=== PATIENT | female | born 1995 | race Caucasian/White ===

== ENCOUNTER 2023-06-27 09:17 | Inpatient (IN) | payer OTHER, SELFPAY ==
[2023-06-27] VITALS (112 sets, daily range): BP systolic 75–126; BP diastolic 35–96; PULSE 78–125; RESP 14–38; TEMP 35.7–37.8; O2SAT 90–100; BMI 19.5
--- NOTE | 2023-06-27 09:25 | ECG_ITS ---
[facility] Test Date: 2023-06-27 Pat Name: ONESIMO JORDAN Department: Room: [facility] Gender: Female Junior Graphic Designer: : 1995 Requested By: JASVIR PAPPAS Order Number: [id number] Reading MD: DORINA PALENCIA Measurements Intervals [place] Rate: 123 P: 88 TN: 108 QRS: 64 QRSD: 88 T: -35 QT: 348 QTc: 421 Interpretive Statements 1120 Sinus tachycardia 2210 Short TN interval Nonspecific ST/T wave changes 9150 abnormal ECG No previous ECG available for comparison Electronically Signed On 06-28-2023 7:01:59 EDT by DORINA PALENCIA
[2023-06-27 10:06] LABS: Allen Test POSITIVE (POSITIVE); Oxygen Saturation ABG 97.2 %
[2023-06-27 10:07] LABS: O2 Mode ROOM AIR; Puncture Site LR
[2023-06-27 10:09] LABS: ABG PCO2 <15.4 mmHg (35.0-45.0); pH ABG <6.818 (7.350-7.450)
[2023-06-27] MEDS: 0.9 % SODIUM CHLORIDE 1,000 ML 999 ML IV (10:15)
[2023-06-27 10:22] LABS: PCO2 VBG 19.8 mmHg (40.0-52.0); pH VBG <6.818 (7.330-7.430)
--- NOTE | 2023-06-27 10:27 | PC.NURSE ---
one on one care provided throughout time patient arrives in the er pt unresponsive upon arrival pt was dropped off by significant other and he states she has ho dka pt unresponsive brought to rm 5 iv access unable to obtain and I/o initiated flushed well then when blood specimen obtained i/o would not flush after that ultrasound iv initiated per MALDONADO wu foleyinserted ua sent to lab pt with rapid respirations ekg completed lab obtained pt responds at times with flushing of IV to I/O region no swelling noted to i/o sites pt withmultiple areas of bruised vein areas to neck femoral area and foot area dr vital with staff and patient orders received
[2023-06-27 10:36] LABS: Basophils Absolute Auto 0.2 10^3/uL (0.0-0.1); Basophils Percent Auto 0.8 % (0.2-2.0); Eosinophils Absolute Auto 0.1 10^3/uL (0.0-0.7); Eosinophils Percent Auto 0.4 % (0.9-7.0); Hematocrit 36.8 % (36.0-48.0); Hemoglobin 10.2 g/dL (12.0-16.0); Immature Granulocytes Abs Auto 1.43 10^3/uL (0.00-0.03); Immature Granulocytes Pct Auto 5.8 % (0.0-0.5); Lymphocytes Absolute Auto 4.7 10^3/uL (1.2-3.8); Lymphocytes Percent Auto 18.8 % (20.5-60.0); Mean Corpuscular HGB Conc 27.7 g/dL (29.9-35.2); Mean Corpuscular Hemoglobin 29.9 pg (26.7-34.0); Mean Corpuscular Volume 107.9 fL (81.0-99.0); Mean Platelet Volume 10.8 fL (9.5-13.5); Monocytes Absolute Auto 2.4 10^3/uL (0.3-0.8); Monocytes Percent Auto 9.7 % (1.7-12.0); Neutrophils Percent Auto 64.5 % (43.0-75.0); Platelet Count 419 10^3/uL (150-450); Red Blood Count 3.41 10^6/uL (4.20-5.40); Red Cell Distribution Width 16.9 % (11.0-15.0); White Blood Count 24.8 10^3/uL (4.0-11.0)
[2023-06-27 10:38] LABS: Bilirubin Urine NEGATIVE (NEGATIVE); Blood Urine TRACE-I (NEGATIVE); Clarity Urine CLEAR (CLEAR); Color Urine LT. YELLOW (YELLOW); Glucose Urine UA >=1000 mg/dL (NEGATIVE); Ketones Urine >=80 mg/dL (NEGATIVE); Leukocyte Esterase Urine NEGATIVE (NEGATIVE); Nitrite Urine NEGATIVE (NEGATIVE); Protein Urine TRACE mg/dL (NEG/TRACE); Urobilinogen Urine 0.2 EU/dL (0.2-1.0); pH Urine 5.5 (5.0-9.0)
[2023-06-27 10:45] LABS: Urine Microscopic Indicated YES
[2023-06-27 10:45] LABS: Alanine Aminotransferase 51 U/L (14-59); Albumin Level 3.5 g/dL (3.4-5.0); Alkaline Phosphatase 141 U/L (46-116); Aspartate Amino Transferase 54 U/L (15-37); BUN Creatinine Ratio 12.6; Bilirubin Total 0.7 mg/dL (0.2-1.0); Calcium 8.5 mg/dL (8.5-10.1); Carbon Dioxide <5.0 mmol/L (21.0-32.0); Chloride 99 mmol/L (98-107); Estimated GFR (African America 49 (>=60); Estimated GFR (Non-African Ame 41 (>=60); Globulin 3.5 g/dL; Magnesium 2.5 mg/dL (1.8-2.4); Potassium 5.1 mmol/L (3.5-5.1); Sodium 136 mmol/L (136-145)
[2023-06-27 10:49] LABS: Glucose 922 mg/dL (74-106)
[2023-06-27 10:50] LABS: Bacteria Urine NONE SEEN #/HPF (NONE SEEN); Crystals Seen? Seen #/HPF (None Seen); Mucus Urine NONE SEEN (NONE SEEN); RBC Urine 0-2 #/HPF (0-2); Squamous Epithelial Cell Urine RARE #/LPF (NONE/RARE); WBC Urine NONE SEEN #/HPF (NONE SEEN)
--- NOTE | 2023-06-27 10:50 | PC.NURSE ---
attempts being made to gain 2nd iv access
[2023-06-27 10:51] LABS: Amorphous Sediment Urine FEW
[2023-06-27 10:54] LABS: Amphetamine Screen Urine NEGATIVE (NEGATIVE); Barbiturates Screen Urine NEGATIVE (NEGATIVE); Benzodiazepines Screen Urine NEGATIVE (NEGATIVE); Buprenorphine Screen Urine NEGATIVE (NEGATIVE); Cannabinoid Screen Urine NEGATIVE (NEGATIVE); Cocaine Screen Urine POSITIVE (NEGATIVE); Methadone Screen Urine NEGATIVE (NEGATIVE); Methamphetamines Screen Urine NEGATIVE (NEGATIVE); Opiate Screen Urine NEGATIVE (NEGATIVE); Oxycodone Screen Urine NEGATIVE (NEGATIVE); Phencyclidine Screen Urine NEGATIVE (NEGATIVE); Tricyclic Antidepressant Urine NEGATIVE (NEGATIVE)
--- NOTE | 2023-06-27 11:11 | ED_ITS ---
HPI - Altered Mental Status General Chief Complaint: Altered Mental Status Stated Complaint: ALTERED MENTAL STATUS Time Seen by Provider: 06/27/23 09:46 History of Present Illness HPI narrative: patient was brought to the hospital by male bystander who immediately left the campus and was not able to provide any information. We were able to get records from her from 07/22/2021 when she was transferred to this hospital from a different facility for DKA. Otherwise we have no history as she is not able to provide mental any information for us. He was seen immediately on arrival here and supportive care and therapeutic resuscitation initiated by myself and the nursing staff. Related Data Allergies Allergy/AdvReac Type Severity Reaction Status Date / Time No Known Drug Allergies Allergy Verified 06/27/23 09:29 Exam Narrative Exam Narrative: patient is restless and moving about all the extremities but will not answer qu estions or follow specific commands. She is to Make an tachycardic. Symptoms would suggest DKA since her blood sugar is markedly elevated on the bedside glucose. In lieu of that IVs were initiated. She was extremely difficult stick with multiple areas of apparent injection of narcotics in the past all of her limbs her feet her groin area included. We were finally able to obtain a left upper extremity IV. We also were were able to pass an intraosseous on her right leg initially that would not flush but then we're able to secure an intraosseous IV access on her left lower extremity. HEENT shows no evidence of trauma or injury. She her airways patent she's not vomiting. She won't answer any questions for us but seems to be hearing us. Chest shows lungs to be clear with no wheezes rales or rhonchi. We cannot get a chest x-ray as there is no portable imaging equipment and I felt she should not go to the department. I hear and see no evidence of respiratory distress or airway problems. Abdomen very thin no guarding rebound rigidity or tenderness to palpation. Extremities other in the numerous needle puncture molina and do not see any evidence of acute trauma or injury. She is moving all the extremities. Constitutional Vital Signs, click to edit/add: Last Vital Signs Temp 97.8 F 06/27/23 09:26 Pulse 100 H 06/27/23 10:50 Resp 32 H 06/27/23 10:50 BP 94/58 06/27/23 10:15 Pulse Ox 99 06/27/23 10:20 O2 Del Method Room Air 06/27/23 09:26 Course Vital Signs Vital signs: Vital Signs Pulse Rate 123 H 06/27/23 09:25 Respiratory Rate 32 H 06/27/23 09:25 Pulse Oximetry 99 06/27/23 09:25 Temperature 97.8 F 06/27/23 09:26 Pulse Rate 100 H 06/27/23 10:50 Respiratory Rate 32 H 06/27/23 10:50 Blood Pressure 94/58 06/27/23 10:15 Pulse Oximetry 99 06/27/23 10:20 Oxygen Delivery Method Room Air 06/27/23 09:26 MDM - Altered Mental Status MDM Narrative Medical decision making narrative: initial laboratory studies confirm our suspicion for DKA with her lactic acid 4.0 bicarbonate less than five glucose ninety twenty-two pH 6.818 with a decreased PCO2 of 15.4. Resuscitation included 2 L of normal saline wide open with a pressure bag. After the 2nd liter was infused I want start her on 0.1 units of insulin per kilogram per hour drip. A Pagan catheter was placed. A call was placed to our hospitalist Dr. Celestin with the labs or tests and clinical condition shared with him. We will get her a bed in ICU as quickly as possible. Lab Data Labs: Lab Results 06/27/23 06/27/23 06/27/23 Range/Units 09:54 10:02 10:25 Puncture Site Lr ABG pH <6.818 L* (7.350-7.450) ABG pCO2 <15.4 L* (35.0-45.0) mmHg ABG pO2 151.0 H (80.0-100.0) mmHg ABG O2 Saturation 97.2 % Julito Test Positive (POSITIVE) VBG pH <6.818 L (7.330-7.430) VBG pCO2 19.8 L (40.0-52.0) mmHg Sodium 136 (136-145) mmol/L Potassium 5.1 (3.5-5.1) mmol/L Chloride 99 (98-107) mmol/L Carbon Dioxide <5.0 L (21.0-32.0) mmol/L Anion Gap 37.80406 BUN 19.0 H (7.0-18.0) mg/dL Creatinine 1.51 H (0.55-1.02) mg/dL Est GFR ( Amer) 49 L (>=60) Est GFR (Non-Af Amer) 41 L (>=60) BUN/Creatinine Ratio 12.6 Glucose 922 H* (74-106) mg/dL Lactate 4.0 H* (0.4-2.0) mmol/L Calcium 8.5 (8.5-10.1) mg/dL Magnesium 2.5 H (1.8-2.4) mg/dL Total Bilirubin 0.7 (0.2-1.0) mg/dL AST 54 H (15-37) U/L ALT 51 (14-59) U/L Alkaline Phosphatase 141 H (46-116) U/L Total Protein 7.0 (6.4-8.2) g/dL Albumin 3.5 (3.4-5.0) g/dL Globulin 3.5 g/dL Albumin/Globulin Ratio 1.0 Urine Color Lt. yellow (YELLOW) Urine Clarity Clear (CLEAR) Urine pH 5.5 (5.0-9.0) Ur Specific [place] 1.020 (1.005-1.025) Urine Protein Trace (NEG/TRACE) mg/dL Urine Glucose (UA) >=1000 A (NEGATIVE) mg/dL Urine Ketones >=80 A (NEGATIVE) mg/dL Urine Occult Blood Trace-i (NEGATIVE) Urine Nitrite Negative (NEGATIVE) Urine Bilirubin Negative (NEGATIVE) Urine Urobilinogen 0.2 (0.2-1.0) EU/dL Ur Leukocyte Esterase Negative (NEGATIVE) Urine RBC 0-2 (0-2) #/HPF Urine WBC None seen (NONE SEEN) #/HPF Ur Squamous Epith Cells Rare (NONE/RARE) #/LPF Urine Crystals Seen A (None Seen) #/HPF Amorphous Sediment Few Urine Bacteria None seen (NONE SEEN) #/HPF Urine Mucus None seen (NONE SEEN) Urine Opiates Screen Negative (NEGATIVE) Ur Buprenorphine Scrn Negative (NEGATIVE) Ur Oxycodone Screen Negative (NEGATIVE) Urine Methadone Screen Negative (NEGATIVE) Ur Propoxyphene Screen Negative (NEGATIVE) Ur Barbiturates Screen Negative (NEGATIVE) U Tricyclic Antidepress Negative (NEGATIVE) Ur Phencyclidine Scrn Negative (NEGATIVE) Ur Amphetamines Screen Negative (NEGATIVE) U Methamphetamines Scrn Negative (NEGATIVE) U Benzodiazepines Scrn Negative (NEGATIVE) Urine Cocaine Screen Positive A (NEGATIVE) U Cannabinoids Screen Negative (NEGATIVE) Discharge Plan Discharge Chief Complaint: Altered Mental Status Clinical Impression: Diabetic keto-acidosis Time of Disposition Decision: 11:16
[2023-06-27] MEDS: 0.9 % SODIUM CHLORIDE 10 ML SYRINGE - SALINE FLUSH 1000 ML IV (11:16)
--- NOTE | 2023-06-27 11:51 | PM.HP ---
H&P: HPI History of Present Illness Chief complaint: Altered mental status Narrative: 28 y/o female to ER with altered mental status. Patient not able to provide history of answer questions and history obtained from chart. Patient was dropped off at ER with altered mental status. Not alert or awake. Not able to answer questions. Review of chart shows history of DM1 and prior episodes of DKA. ABG shwoed pH 6.8 and pCO2 <15. Labs with glucose 922 and anion gap 32. Urine positive for cocaine. Given 2 L normal saline and admitted to ICU for treatment. Review of Systems ROS Status of ROS unobtainable due to mental status [facility] Medical History (Updated 06/27/23 @ 11:55 by Geo Cuevas MD) Meds Home Medications and Allergies Allergies Allergy/AdvReac Type Severity Reaction Status Date / Time No Known Drug Allergies Allergy Verified 06/27/23 09:29 Exam Constitutional Vital Signs, click to edit/add: Last Vital Signs Temp 97.8 F 06/27/23 09:26 Pulse 100 H 06/27/23 10:50 Resp 32 H 06/27/23 10:50 BP 94/58 06/27/23 10:15 Pulse Ox 99 06/27/23 10:20 O2 Del Method Room Air 06/27/23 09:26 Common normals: healthy appearing Exam limitations: altered mental status General appearance: lethargic HENAK Common normals: normocephalic Respiratory Common normals: clear to auscultation bilaterally Effort & inspection: tachypneic Auscultation: no rales, no rhonchi and no wheezes Cardio Common normals: regular rate, regular rhythm, no gallops, no murmurs and no rub GI Common normals: Normal to inspection, nondistended, normoactive bowel sounds present and non-tender Extremity Common normals: no pedal edema Results Labs Labs: BMP 06/27/23 10:02 Sodium 136 Potassium 5.1 Chloride 99 Carbon Dioxide <5.0 L BUN 19.0 H Creatinine 1.51 H Glucose 922 H* Calcium 8.5 Liver Function 06/27/23 Range/Units 10:02 Total Bilirubin 0.7 (0.2-1.0) mg/dL AST 54 H (15-37) U/L ALT 51 (14-59) U/L Alkaline Phosphatase 141 H (46-116) U/L Albumin 3.5 (3.4-5.0) g/dL Urine 06/27/23 Range/Units 10:25 Urine Color Lt. yellow (YELLOW) Urine Clarity Clear (CLEAR) Urine pH 5.5 (5.0-9.0) Ur Specific [place] 1.020 (1.005-1.025) Urine Protein Trace (NEG/TRACE) mg/dL Urine Glucose (UA) >=1000 A (NEGATIVE) mg/dL ABG ABG results: 06/27/23 06/27/23 09:54 10:02 ABG pH <6.818 L* ABG pCO2 <15.4 L* ABG pO2 151.0 H ABG O2 Saturation 97.2 VBG pH <6.818 L VBG pCO2 19.8 L Attestation: I have reviewed the pertinent ABG results. Assessment and Plan Assessment and Plan (1) Acute kidney injury: (2) DKA, type 1: (3) Altered mental status: (4) Cocaine abuse: Plan Presented with DKA and altered mental status. Urine positive for cocaine and patient has track molina on bilateral arms. Continue IV fluids. Give IV insulin 5 units x one then start drip at 5 units per hour. Monitor venous pH and BMP. Monitor electrolytes. Will continue insulin drip until anion gap normalized. Monitor glucose every hour. Will need to verify home medications.
[2023-06-27] MEDS: INSULIN REGULAR IN 0.9 % NACL 100 UNIT/100 ML BAG IV ×4 (12:38→23:05)
[2023-06-27] MEDS: POTASSIUM CHLORIDE IN 0.9%NACL 1,000 ML 100 MEQ IV (12:39)
[2023-06-27 14:45] LABS: PCO2 VBG <15.4 mmHg (40.0-52.0)
[2023-06-27 15:06] LABS: BUN Creatinine Ratio 13.8; Calcium 6.9 mg/dL (8.5-10.1); Carbon Dioxide <5.0 mmol/L (21.0-32.0); Chloride 109 mmol/L (98-107); Estimated GFR (African America 52 (>=60); Estimated GFR (Non-African Ame 43 (>=60); Magnesium 2.2 mg/dL (1.8-2.4); Potassium 4.6 mmol/L (3.5-5.1); Sodium 140 mmol/L (136-145)
[2023-06-27 15:10] LABS: Glucose 688 mg/dL (74-106)
[2023-06-27 15:48] LABS: Glucometer 517 mg/dL (74-106)
[2023-06-27] MEDS: ACETAMINOPHEN 500 MG TABLET 1000 MG PO (15:49)
[2023-06-27 16:55] LABS: Glucometer 401 mg/dL (74-106)
--- NOTE | 2023-06-27 16:56 | PC.NURSE ---
Patient IVFs were paused d/t PIV infiltrating and only IV access is the patient's left tib IO. Patient is c/o continuous pain at the site and is requesting that it be removed. Risks vs benefits explained to patient. Patient agreed to take prn medication available while awaiting IV access from Dynamic manager programming, Carlos. Supplies were pulled for patient. Verbal orders received from Dr. Marcell Cuevas stating okay to pause IVFs and insulin gtt while awaiting access from PICC team. Patient is ordered a 5 unit bolus to be given prior to pausing Insulin gtt.
[2023-06-27 18:20] LABS: Anion Gap 28.1; Calcium 7.1 mg/dL (8.5-10.1); Carbon Dioxide 7.2 mmol/L (21.0-32.0); Chloride 112 mmol/L (98-107); Estimated GFR (African America >60 (>=60); Estimated GFR (Non-African Ame 56 (>=60); Glucose 347 mg/dL (74-106); Potassium 4.3 mmol/L (3.5-5.1); Sodium 143 mmol/L (136-145)
[2023-06-27 18:34] LABS: Lactate/Lactic Acid 4.8 mmol/L (0.4-2.0)
[2023-06-27] MEDS: MORPHINE SULFATE 2 MG/ML SYRINGE 1 MG IV ×2 (18:35→21:29)
[2023-06-27] MEDS: ONDANSETRON PF 4 MG/2 ML VIAL IV (19:37)
--- NOTE | 2023-06-27 20:55 | PC.NURSE ---
D5 NS overrode for in the Pyxis and hung at a rate of 100 ml/hr. Awaiting further orders from physician.
[2023-06-27 21:53] LABS: Lactate/Lactic Acid 1.8 mmol/L (0.4-2.0)
[2023-06-28] VITALS (61 sets, daily range): BP systolic 88–130; BP diastolic 50–94; PULSE 80–130; RESP 7–29; TEMP 36.3–36.8; O2SAT 98–100; BMI 19.5
[2023-06-28] MEDS: ONDANSETRON PF 4 MG/2 ML VIAL IV (00:07)
[2023-06-28] MEDS: MORPHINE SULFATE 2 MG/ML SYRINGE 1 MG IV ×5 (01:19→20:16)
[2023-06-28] MEDS: POTASSIUM CHLORIDE/D5-0.9%NACL 1,000 ML 100 MEQ IV ×2 (01:21→11:47)
[2023-06-28] MEDS: PROMETHAZINE HCL 25 MG/ML VIAL 12.5 MG IV ×2 (01:30→06:55)
[2023-06-28 05:01] LABS: Basophils Percent Auto 0.5 % (0.2-2.0); Eosinophils Percent Auto 0.1 % (0.9-7.0); Hematocrit 27.9 % (36.0-48.0); Hemoglobin 8.5 g/dL (12.0-16.0); Immature Granulocytes Abs Auto 0.11 10^3/uL (0.00-0.03); Immature Granulocytes Pct Auto 1.4 % (0.0-0.5); Lymphocytes Absolute Auto 1.4 10^3/uL (1.2-3.8); Lymphocytes Percent Auto 17.8 % (20.5-60.0); Mean Corpuscular HGB Conc 30.5 g/dL (29.9-35.2); Mean Corpuscular Hemoglobin 29.6 pg (26.7-34.0); Mean Corpuscular Volume 97.2 fL (81.0-99.0); Mean Platelet Volume 9.3 fL (9.5-13.5); Monocytes Absolute Auto 0.5 10^3/uL (0.3-0.8); Monocytes Percent Auto 6.4 % (1.7-12.0); Neutrophils Absolute Auto 5.9 10^3/uL (1.4-6.5); Neutrophils Percent Auto 73.8 % (43.0-75.0); Platelet Count 192 10^3/uL (150-450); Red Blood Count 2.87 10^6/uL (4.20-5.40); Red Cell Distribution Width 16.8 % (11.0-15.0)
[2023-06-28 05:12] LABS: Anion Gap 17.8; Calcium 7.3 mg/dL (8.5-10.1); Chloride 114 mmol/L (98-107); Estimated GFR (African America >60 (>=60); Estimated GFR (Non-African Ame >60 (>=60); Glucose 280 mg/dL (74-106); Magnesium 1.5 mg/dL (1.8-2.4); Potassium 3.8 mmol/L (3.5-5.1); Sodium 142 mmol/L (136-145)
[2023-06-28 06:25] LABS: Glucometer 323 mg/dL (74-106)
--- NOTE | 2023-06-28 06:34 | PC.NURSE ---
Gregorio device notes sugar is high and to recheck in one hour.
--- NOTE | 2023-06-28 06:40 | PC.NURSE ---
Patient continues to rate pain in back, chest and hips as a 8/10. Patient has been resting quietly with less signs of distress than previous in the shift.
[2023-06-28] MEDS: INSULIN REGULAR IN 0.9 % NACL 100 UNIT/100 ML PLAST..BAG IV (06:50)
--- NOTE | 2023-06-28 06:57 | PC.NURSE ---
Patient continues to rate pain of back, chest and hip as 8/10. Patient has been resting with eyes closed and showing less signs of distress.
[2023-06-28 09:04] LABS: Anion Gap 19.6; BUN Creatinine Ratio 7.5; Carbon Dioxide 14.1 mmol/L (21.0-32.0); Chloride 109 mmol/L (98-107); Estimated GFR (African America >60 (>=60); Estimated GFR (Non-African Ame >60 (>=60); Glucose 310 mg/dL (74-106); Potassium 3.7 mmol/L (3.5-5.1); Sodium 139 mmol/L (136-145)
[2023-06-28] MEDS: METOCLOPRAMIDE HCL 10 MG/2 ML VIAL IVP ×4 (09:15→21:55)
[2023-06-28] MEDS: OMEPRAZOLE 40 MG CAPSULE.DR PO (09:15)
[2023-06-28] MEDS: ARIPIPRAZOLE 5 MG TABLET PO (09:16)
[2023-06-28] MEDS: POTASSIUM CHLORIDE 10 MEQ ER TABLET 20 MEQ PO (09:16)
[2023-06-28 09:19] LABS: Calcium 8.4 mg/dL (8.5-10.1)
[2023-06-28] MEDS: PROPRANOLOL HCL 80 MG CAP.24H PO (09:26)
--- NOTE | 2023-06-28 09:45 | PC.NURSE ---
Verbal orders received from Dr. Marcell Cuevas stating okay to continue to use RUE Dual Lumen PICC placed yesterday by Dynamic juice bar team member, Radha Hartman. Risks versus benefits discussed and d/t difficult time achieving access on patient to leave current PICC In plac
--- NOTE | 2023-06-28 09:49 | PC.NURSE ---
Addendum entered by Tracey Vail RN 06/28/23 09:59: Dr. Marcell Cuevas gave verbal orders top leave current PICC in place due difficulties in accessing patient. Patient has no complaints at this time at insertion site. Will ctm both patient and insertion site for any complications r/t PICC placed. Original Note: Physician rounds at bedside. Discussed risks vs benefits of current RUE Dual Lumen PICC that was placed yesterday, 06/27/2023, by Dynamic linen supervisorRadha. After PICC inserted yesterday, it was discovered that the insertion kit was on 12/20/2022. D/shaan Cuevas gave verbal orders top leave current PICC in place due difficulties in accessing patient. Patient has no complaints at this time at insertion site. Will ctm both patient and insertion site for any complicatio/ns r/t PICC placed.
--- NOTE | 2023-06-28 10:20 | PM.PN ---
Progress Note: Subjective Subjective Interval history: Patient improved overnight. More alert but still drowsy. Glucose improved and changed fluids to D5NS. Anion gap improved but remains elevated. C/o severe nausea and diffuse abdominal pain. History of gastroparesis and takes reglan. Decreased PO and only drinking small amounts of water. No chest pain or palpitations. No SOB or cough. Exam Constitutional Vital Signs, click to edit/add: Last Vital Signs Temp 97.8 F 06/28/23 07:34 Pulse 110 H 06/28/23 10:00 Resp 16 06/28/23 04:30 BP 128/72 06/28/23 04:30 Pulse Ox 100 06/28/23 07:30 O2 Del Method Room Air 06/27/23 11:28 Documenting provider has reviewed patient's vital signs: yes Common normals: no apparent distress, oriented x3 and alert HENMT Common normals: normocephalic Eye Common normals: PERRL and EOMs intact bilaterally Respiratory Common normals: normal respiratory effort and clear to auscultation bilaterally Cardio Common normals: regular rate, regular rhythm, no gallops, no murmurs and no rub GI Auscultation: normoactive bowel sounds Palpation: soft and tender (diffuse TTP); no guarding Extremity Common normals: no pedal edema Progress Note: Objective Labs Labs: Short CBC 06/27/23 06/28/23 Range/Units 10:02 04:30 WBC 24.8 H 8.0 (4.0-11.0) 10^3/uL Hgb 10.2 L 8.5 L (12.0-16.0) g/dL Hct 36.8 27.9 L (36.0-48.0) % Plt Count 419 192 (150-450) 10^3/uL BMP 06/27/23 06/27/23 06/27/23 10:02 14:30 18:06 Sodium 136 140 143 Potassium 5.1 4.6 4.3 Chloride 99 109 H 112 H Carbon Dioxide <5.0 L <5.0 L 7.2 L BUN 19.0 H 20.0 H 15.0 Creatinine 1.51 H 1.45 H 1.15 H Glucose 922 H* 688 H* 347 H Calcium 8.5 6.9 L 7.1 L 06/28/23 06/28/23 04:30 08:05 Sodium 142 139 Potassium 3.8 3.7 Chloride 114 H 109 H Carbon Dioxide 14.0 L 14.1 L BUN 9.0 7.0 Creatinine 0.90 0.93 Glucose 280 H 310 H Calcium 7.3 L 8.4 L Liver Function 06/27/23 Range/Units 10:02 Total Bilirubin 0.7 (0.2-1.0) mg/dL AST 54 H (15-37) U/L ALT 51 (14-59) U/L Alkaline Phosphatase 141 H (46-116) U/L Albumin 3.5 (3.4-5.0) g/dL Urine 06/27/23 Range/Units 10:25 Urine Color Lt. yellow (YELLOW) Urine Clarity Clear (CLEAR) Urine pH 5.5 (5.0-9.0) Ur Specific [place] 1.020 (1.005-1.025) Urine Protein Trace (NEG/TRACE) mg/dL Urine Glucose (UA) >=1000 A (NEGATIVE) mg/dL Progress Note: A&P Assessment and Plan (1) DKA, type 1: (2) Diabetic gastroparesis associated with type 1 diabetes mellitus: (3) Acute kidney injury: (4) Altered mental status: (5) Cocaine abuse: Plan Labs continue to improve but still has elevated anion gap. Continue IV fluids with D5. Continue insulin drip until anion gap normal. Monitor chem 8 and Mg. Once normal AG will give lantus and stop drip. C/o nausea and start IV reglan. Advance diet as tolerated.
--- NOTE | 2023-06-28 10:34 | CM.NOTE ---
Rounds made with Dr. Cuevas. Answers questions with only a single word, very tired this am. No plan for discharge today.
--- NOTE | 2023-06-28 11:22 | SWNOTE1 ---
SW attempted to assess pt and ask her questions, but pt would only open eyes for a second and then close them. SW let pt know SW to be back this afternoon to complete assessment with pt.
[2023-06-28] MEDS: MAGNESIUM SULFATE IV (11:42)
[2023-06-28] MEDS: PIGGYBACK IV (11:42)
[2023-06-28] MEDS: WATER IV (11:42)
[2023-06-28 12:42] LABS: Magnesium 1.4 mg/dL (1.8-2.4)
[2023-06-28 12:49] LABS: Anion Gap 15.5; BUN Creatinine Ratio 5.6; Calcium 7.8 mg/dL (8.5-10.1); Carbon Dioxide 16.3 mmol/L (21.0-32.0); Chloride 110 mmol/L (98-107); Estimated GFR (African America >60 (>=60); Estimated GFR (Non-African Ame >60 (>=60); Glucose 243 mg/dL (74-106); Potassium 3.8 mmol/L (3.5-5.1); Sodium 138 mmol/L (136-145)
--- NOTE | 2023-06-28 13:54 | SWNOTE1 ---
SW met with pt to discuss dc needs and positive drug screen for cocaine. Pt lives at home with her bridget and she has a 10 year old son as well. Her son is with his father, but she does see him frequently. SW did address the positive drug screen with pt. Pt stated her friends told her to take the cocaine and it would help with her pain she was having. Pt stated she has never used cocaine before. SW asked if pt had used any kind of drugs or is currently in recovery from drug use. Pt stated no. Pt does not admit to any other drug use at this time. SW did ask who brought her in and she stated her fiance. SW asked if he has been up to see her and she stated no. SW asked if she was safe at home with bridget and she stated yes. Pt and bridget have been together for 4 1/2 years. SW then let pt know we can try to get pt from hospital to inpt facility for drugs/mental health. Pt did voice interest and stated she is depressed. SW asked if she had any intentions of harming herself? Pt stated no not at this time. SW asked if she recently had any intentions and she stated yes but had no plans to harm herself. Again SW asked if she had any intentions of harming herself now and she stated no. SW got pt ice water per pt's request and when SW came back, she has decided she wants to go home first and say goodbye to her son and then she will have someone take her to [facility]. SW let her know that she should think about it and we can work on getting pt from hospital to rehab. Pt is going to think about it and let SW know. SW let her know that she was not doing well when she came in and jeannie someone brought her in. Pt voiced understanding. SW asked if she did any follow ups with PCP or other doctors. She stated no and she lives in [place] and hard to make it to doctor. SW to print off list of doctors in area and also accepting physicians. SW updated nursing and doctor.
[2023-06-28] MEDS: INSULIN DETEMIR 300 UNIT/3 ML INSULN.PEN 40 UNIT SUBQ (14:20)
[2023-06-28] MEDS: SUCRALFATE 1 GM TABLET PO ×2 (16:49→21:55)
[2023-06-28] MEDS: RIVAROXABAN 10 MG TABLET 20 MG PO (17:49)
--- NOTE | 2023-06-28 18:43 | DIETREC ---
Diet consult completed; please see Nutrition Assessment dated 06/28/23. Recommendations: 1. Consistent Carbohydrate (CCD) diet. 2. 237 mL Ensure HP TID with meals. Hold if >/= 50% of meal is eaten. 3. MVI w/minerals 1x daily.
--- NOTE | 2023-06-28 21:04 | PC.NURSE ---
Patient resting comfortably with eyes closed.I called her name and she didn't answer,Patient appears to be sleeping.Patient opened eyes and said pain is slowly getting better its a 6
[2023-06-28] MEDS: FERROUS SULFATE 325 MG TABLET PO (21:57)
--- NOTE | 2023-06-28 22:53 | PC.NURSE ---
Patient voided in toilet without a hat to measure it.
--- NOTE | 2023-06-28 23:13 | PC.NURSE ---
Patient states her pain is a 7 . Patient up to the bathroom,and asked for chicken broth. Patient is not grimacing or acting like she's in distress.
[2023-06-29] VITALS (27 sets, daily range): BP systolic 93–105; BP diastolic 56–68; PULSE 77–113; RESP 16–18; TEMP 36.8–36.9; O2SAT 98–100
[2023-06-29] MEDS: POTASSIUM CHLORIDE 10 MEQ ER TABLET 20 MEQ PO ×2 (00:14→09:39)
[2023-06-29] MEDS: MORPHINE SULFATE 2 MG/ML SYRINGE 1 MG IV ×3 (01:27→09:40)
--- NOTE | 2023-06-29 03:24 | PC.NURSE ---
Patient's Urine was blood tinged. She states she already had her menstruals cycle two weeks ago.
[2023-06-29] MEDS: FERROUS SULFATE 325 MG TABLET PO (05:36)
[2023-06-29] MEDS: OMEPRAZOLE 40 MG CAPSULE.DR PO (05:36)
[2023-06-29 05:54] LABS: Basophils Percent Auto 0.3 % (0.2-2.0); Eosinophils Percent Auto 0.3 % (0.9-7.0); Hematocrit 27.1 % (36.0-48.0); Hemoglobin 8.5 g/dL (12.0-16.0); Immature Granulocytes Abs Auto 0.03 10^3/uL (0.00-0.03); Immature Granulocytes Pct Auto 0.5 % (0.0-0.5); Lymphocytes Absolute Auto 2.1 10^3/uL (1.2-3.8); Lymphocytes Percent Auto 35.6 % (20.5-60.0); Mean Corpuscular HGB Conc 31.4 g/dL (29.9-35.2); Mean Corpuscular Hemoglobin 29.8 pg (26.7-34.0); Mean Corpuscular Volume 95.1 fL (81.0-99.0); Mean Platelet Volume 9.6 fL (9.5-13.5); Monocytes Absolute Auto 0.4 10^3/uL (0.3-0.8); Monocytes Percent Auto 7.4 % (1.7-12.0); Neutrophils Absolute Auto 3.3 10^3/uL (1.4-6.5); Neutrophils Percent Auto 55.9 % (43.0-75.0); Platelet Count 170 10^3/uL (150-450); Red Blood Count 2.85 10^6/uL (4.20-5.40); Red Cell Distribution Width 17.4 % (11.0-15.0); White Blood Count 5.9 10^3/uL (4.0-11.0)
[2023-06-29 06:49] LABS: Anion Gap 11.4; BUN Creatinine Ratio 5.3; Calcium 7.6 mg/dL (8.5-10.1); Carbon Dioxide 22.5 mmol/L (21.0-32.0); Chloride 110 mmol/L (98-107); Estimated GFR (African America >60 (>=60); Estimated GFR (Non-African Ame >60 (>=60); Glucose 83 mg/dL (74-106); Magnesium 1.7 mg/dL (1.8-2.4); Sodium 141 mmol/L (136-145)
[2023-06-29 06:54] LABS: Potassium 2.9 mmol/L (3.5-5.1)
[2023-06-29] MEDS: POTASSIUM CHLORIDE 40 MEQ in 0.9 % SODIUM CHLORIDE 250 ML 125 MEQ IV (07:45)
[2023-06-29] MEDS: ARIPIPRAZOLE 5 MG TABLET PO (09:39)
[2023-06-29] MEDS: SUCRALFATE 1 GM TABLET PO (09:39)
[2023-06-29] MEDS: METOCLOPRAMIDE HCL 10 MG/2 ML VIAL IVP (09:39)
[2023-06-29] MEDS: PROPRANOLOL HCL 80 MG CAP.24H PO (09:39)
--- NOTE | 2023-06-29 10:19 | CM.NOTE ---
Rounds made with leah Khanna to discharge to home today. No discharge needs identified. SW spoke with pt regarding outpatient counseling services.
--- NOTE | 2023-06-29 10:51 | P.DS_ITS ---
DS: Providers Provider Date of admission: 06/27/23 11:01 Primary care physician: Non-Staff Physician, Consults: 06/27/23 Consult to Dietitian Routine Reason For Exam: DKA Reason for consultation: DKA Has provider been notified: Yes 06/27/23 11:39 Consult to Home Appliance Washing Machine Mechanic Routine Reason for consultation: DKA DS: Diagnosis Discharge Diagnosis (1) DKA, type 1: (2) Diabetic gastroparesis associated with type 1 diabetes mellitus: (3) Acute kidney injury: (4) Altered mental status: (5) Cocaine abuse: DS: Summary Hospital Course Hospital Course: Reason for admission: See H&P for details. 28 y/o female to ER with altered mental status. Patient not able to provide history of answer questions and history obtained from chart. Patient was dropped off at ER with altered mental status. Not alert or awake. Not able to answer questions. Review of chart shows history of DM1 and prior episodes of DKA. ABG shwoed pH 6.8 and pCO2 <15. Labs with glucose 922 and anion gap 32. Urine positive for cocaine. Given 2 L normal saline and admitted to ICU for treatment. Hospital course: Gave IV insulin bolus then started insulin drip. Labs slowly improved. Once more alert c/o severe nausea. History of gastroparesis and added IV reglan. Anion gap improved but still elevated and BS under 200. Changed IV fluids to D5 NS. BS improved and anion gap normal. Gave dose of levemir. Continued to have nausea but able to start taking liquids. Poor PO and variable BS. Nausea tolerable with medication. Discharged home in stable condition. Continue liquid diet and gradually advance as tolerated. Take 1/2 dose insulin until eating better. F/u with PCP in 1-2 weeks. Time Spent with Patient Time attestation: Total time spent providing and/or coordinating discharge services: Exam Constitutional Vital Signs, click to edit/add: Last Vital Signs Temp 98.4 F 06/29/23 08:31 Pulse 98 H 06/29/23 10:00 Resp 18 06/29/23 05:13 BP 105/68 06/29/23 08:14 Pulse Ox 100 06/29/23 05:13 O2 Del Method Room Air 06/28/23 20:00 Documenting provider has reviewed patient's vital signs: yes Common normals: no apparent distress, oriented x3 and alert HENMT Common normals: normocephalic Eye Common normals: PERRL and EOMs intact bilaterally Respiratory Common normals: normal respiratory effort and clear to auscultation bilaterally Cardio Common normals: regular rate, regular rhythm, no gallops, no murmurs and no rub GI Common normals: Normal to inspection, nondistended, normoactive bowel sounds present and non-tender Extremity Common normals: no pedal edema DS: Data Data Completed and Pending Labs on day of discharge: Labs from last 24 hours 06/29/23 06/28/23 05:07 12:04 WBC 5.9 RBC 2.85 L Hgb 8.5 L Hct 27.1 L MCV 95.1 MCH 29.8 MCHC 31.4 RDW 17.4 H Plt Count 170 MPV 9.6 Neut % (Auto) 55.9 Lymph % (Auto) 35.6 Patrick % (Auto) 7.4 Eos % (Auto) 0.3 L Baso % (Auto) 0.3 Neut # (Auto) 3.3 Lymph # (Auto) 2.1 Patrick # (Auto) 0.4 Eos # (Auto) 0.0 Baso # (Auto) 0.0 Abs Immat Gran (auto) 0.03 Imm/Tot Granulo (auto) 0.5 Sodium 141 138 Potassium 2.9 L* 3.8 Chloride 110 H 110 H Carbon Dioxide 22.5 16.3 L Anion Gap 11.4 15.5 BUN 3.0 L 5.0 L Creatinine 0.57 0.89 Est GFR ( Amer) >60 >60 Est GFR (Non-Af Amer) >60 >60 BUN/Creatinine Ratio 5.3 5.6 Glucose 83 243 H Calcium 7.6 L 7.8 L Magnesium 1.7 L 1.4 L Discharge Plan Discharge Discharge Medications: New ondansetron 4 mg tablet,disintegrating 4 mg PO Q6H PRN (Reason: nausea and vomiting) Qty: 20 0RF Continued aripiprazole [Abilify] 5 mg tablet 5 mg PO DAILY ferrous sulfate [Feosol] 325 mg (65 mg iron) tablet 325 mg PO TID metoclopramide HCl [Reglan] 10 mg tablet 10 mg PO ACHS PRN (Reason: nausea and vomiting) pantoprazole [Protonix] 40 mg tablet,delayed release (DR/EC) 40 mg PO DAILY potassium chloride [K-Tab] 20 mEq tablet extended release 20 meq PO BID propranolol [Inderal LA] 80 mg capsule,extended release 24 hr 80 mg PO DAILY Xarelto 20 mg tablet 20 mg PO QPM Rx Instructions: must administer with evening meal sucralfate [Carafate] 1 gram tablet 1 g PO ACHS insulin lispro [Humalog KwikPen Insulin] 100 unit/mL insulin pen 1 sliding scale dose subcut USEASDIRECTD Rx Instructions: 3-15 UNITS PER SLIDING SCA insulin glargine [Lantus Solostar U-100 Insulin] 100 unit/mL (3 mL) insulin pen 40 unit subcut DAILY Activity: resume usual activities as tolerated Diet: advance to your usual diet Forms: Portal Instructions Referrals: Physician,Non-Staff, MD [Primary Care Provider] - 1 week
--- NOTE | 2023-06-30 15:10 | CM.DCFOLLOWU ---
No answer 06/30
--- NOTE | 2023-07-03 12:51 | CM.DCFOLLOWU ---
No answer 2nd attempt 07/03
== END 2023-06-29 12:13 | disposition home or self-care (01) | DRG 420 ==
LOC: ER 10:57 → ICU 11:16
PROVIDERS: Medical Genetics Clinical Genetics (M.D.); Admitting Provider Family Medicine; Emergency Provider Emergency Medicine Emergency Medical Services; Visit Provider Family Medicine
DX: E10.10 Type 1 diabetes mellitus with ketoacidosis without coma (principal); N17.9 Acute kidney failure, unspecified; F14.10 Cocaine abuse, uncomplicated; E10.43 Type 1 diabetes mellitus with diabetic autonomic (poly)neuropathy; K31.84 Gastroparesis; R41.82 Altered mental status, unspecified
CPT/HCPCS: 36415; 36569; 36592; 36600; 80048; 80053; 80307; 81001; 82800; 82805; 82948; 83605; 83735; 85025; 93005; 96361; 96365; 96366; 96375; 96376; 99285; C1887; J3480

== ENCOUNTER 2023-08-02 09:58 | Inpatient (IN) | payer OTHER, SELFPAY ==
[2023-08-02] VITALS (105 sets, daily range): BP systolic 83–140; BP diastolic 53–104; PULSE 127–160; RESP 1–49; TEMP 32.8–36.7; O2SAT 75–100; BMI 21.6; BMI 20.2
--- NOTE | 2023-08-02 10:12 | ECG_ITS ---
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
--- NOTE | 2023-08-02 10:33 | PC.NURSE ---
this nurse out to lobby to see patient slumped over in a wheelchair pt at this time answers slight questions to this nurse pt brought back to rm 9 at the time and pt barel;y able to get into the bed and vomitts what she says is blood shortly into triage patient stops answering questions and this nurse wheels pt to rm 4 pt is unresponsive at times does state the molina in her rt side of her neck and states that it is from a central line that was placed a t [facility] 1 week ago unable to gain iv access pt remains unresponsive at times and then pulls her own arm away per dr gonsalez pt withkusmal breathing states she has been in dka before glc reads high multiple attempts at iv ac
--- NOTE | 2023-08-02 10:36 | PC.NURSE ---
this nurse goes to lobby to find patient slumped over in a wheelchair pt brought back to rm 9 but quickly becomes unresponsive so patient then rashaun to rm 4 pt glucose reading reads high pt co nausea states she has been throwing up since yesterday pt admits to marijuana usage and hx of dka pt w rapid respirations and co nausea pt with molina to her rt side of hert neck pt states they are from a central line she had placed in [facility] i/o plcaed to left lopez due to multiple attempts to gain iv access pt yells out at times pt with no iv access he placed ua obtained and sent to lab
--- NOTE | 2023-08-02 11:08 | PC.NURSE ---
pt requesting pain medicine and requests water at times pt i/o flushed w lidocaine per 20mg and then saline flush and then lidocaine 20mg and another saline flush pt marty ns infusion well after the procedure
[2023-08-02 11:11] LABS: Bilirubin Urine SMALL (NEGATIVE); Blood Urine SMALL (NEGATIVE); Clarity Urine CLEAR (CLEAR); Color Urine LT. YELLOW (YELLOW); Glucose Urine UA >=1000 mg/dL (NEGATIVE); Ketones Urine >=80 mg/dL (NEGATIVE); Leukocyte Esterase Urine NEGATIVE (NEGATIVE); Nitrite Urine NEGATIVE (NEGATIVE); Protein Urine NEGATIVE (NEG/TRACE); Specific Gravity Urine 1.015 (1.005-1.025); Urobilinogen Urine 0.2 EU/dL (0.2-1.0)
--- NOTE | 2023-08-02 11:16 | PC.NURSE ---
pt responding and requesting for pain medications pt using mouth swab chest xray with patient pt marty iv infusion to left leg no swelling noted
[2023-08-02 11:21] LABS: Acetone MODERATE (NEGATIVE); HCG Qualitative NEGATIVE (NEGATIVE)
[2023-08-02 11:23] LABS: Anion Gap 45.1; Calcium 9.1 mg/dL (8.5-10.1); Carbon Dioxide 7.6 mmol/L (21.0-32.0); Estimated GFR (African America 32 (>=60); Estimated GFR (Non-African Ame 27 (>=60); Ethanol <3 mg/dL; Sodium 129 mmol/L (136-145)
[2023-08-02 11:23] LABS: Amphetamine Screen Urine NEGATIVE (NEGATIVE); Barbiturates Screen Urine NEGATIVE (NEGATIVE); Benzodiazepines Screen Urine NEGATIVE (NEGATIVE); Cannabinoid Screen Urine POSITIVE (NEGATIVE); Cocaine Screen Urine NEGATIVE (NEGATIVE); Methadone Screen Urine NEGATIVE (NEGATIVE); Methamphetamines Screen Urine NEGATIVE (NEGATIVE); Opiate Screen Urine NEGATIVE (NEGATIVE); Oxycodone Screen Urine NEGATIVE (NEGATIVE); Phencyclidine Screen Urine NEGATIVE (NEGATIVE); Tricyclic Antidepressant Urine NEGATIVE (NEGATIVE)
[2023-08-02 11:24] LABS: Buprenorphine Screen Urine NEGATIVE (NEGATIVE)
--- NOTE | 2023-08-02 11:25 | XR_ITS ---
The [address] [address] Patient Name: ONESIMO JORDAN MRN: [id number] date: 1995 Sex: F Assigned Patient Location: ED.MAIN Current Patient Location: ED.MAIN Accession/Order Number: [id number] Exam Date: 08/02/2023 11:20 Report Date: 08/02/2023 11:31 At the request of: DIMA MORGAN Procedure: XR chest 1V EXAMINATION: XR chest 1V HISTORY: weak , chest pain COMPARISON: XR abdomen with PA chest 07/12/2021 FINDINGS: LUNGS: No significant pulmonary parenchymal abnormalities. VASCULATURE: No increased pulmonary vasculature. PLEURA: No pneumothorax, effusion, or pleural thickening. CARDIAC: No cardiomegaly or cardiac silhouette abnormality. MEDIASTINUM: No visible mass or adenopathy. BONES: No fracture or visible bone lesion. OTHER: Negative. XR/XR chest 1V IMPRESSION: 1. Normal examination. Electronically authenticated by: DALI GUILLORY Date: 08/02/2023 11:31
[2023-08-02 11:27] LABS: Chloride 83 mmol/L (98-107); Glucose 1042 mg/dL (74-106); Potassium 6.7 mmol/L (3.5-5.1)
[2023-08-02] MEDS: ONDANSETRON PF 4 MG/2 ML VIAL IV ×2 (11:28→15:15)
[2023-08-02] MEDS: LIDOCAINE HCL 2% PF 40 MG/2 ML VIAL INJ (11:28)
[2023-08-02] MEDS: LIDOCAINE HCL 2% PF 40 MG/2 ML VIAL 1 ML INJ ×4 (11:28→14:34)
[2023-08-02 11:29] LABS: Bacteria Urine NONE SEEN #/HPF (NONE SEEN); Cast Seen? NONE SEEN #/LPF (NONE SEEN); Crystals Seen? None Seen #/HPF (None Seen); Mucus Urine NONE SEEN (NONE SEEN); RBC Urine 0-2 #/HPF (0-2); Squamous Epithelial Cell Urine NONE SEEN #/LPF (NONE/RARE); WBC Urine 0-2 #/HPF (NONE SEEN)
[2023-08-02] MEDS: 0.9 % SODIUM CHLORIDE 1,000 ML 1000 ML IV ×2 (11:29→17:32)
[2023-08-02 11:30] LABS: Urine Culture Indicated NO
[2023-08-02] MEDS: INSULIN REGULAR 300 UNITS/3 ML 10 UNIT IV (11:34)
--- NOTE | 2023-08-02 11:56 | PC.NURSE ---
pt alert and oriented. remains restless and tachypneic. able to follow commands. GCS 13
[2023-08-02] MEDS: 0.9 % SODIUM CHLORIDE 1,000 ML 999 ML IV (12:11)
[2023-08-02] MEDS: INSULIN REGULAR IN 0.9 % NACL 100 UNIT/100 ML PLAST..BAG 5.7 UNIT IV (12:11)
--- NOTE | 2023-08-02 12:53 | PC.NURSE ---
PT RECTAL TEMP 97.[address] MORGAN AWARE. BARE HUGGER PLACED ON PT ON HIGH AT THIS TIME. WILL CONTINUE TO MONITOR,
--- NOTE | 2023-08-02 14:27 | PC.NURSE ---
Assisted DR MORGAN with central line insertion. Unable to establish line, x2 attempts. Blood obtained for lab and blood culture. Destinee brumfield still on pt. IVF and insulin gtt remain running through IO.
[2023-08-02 14:32] LABS: Hematocrit 40.7 % (36.0-48.0); Hemoglobin 12.8 g/dL (12.0-16.0); Mean Corpuscular HGB Conc 31.4 g/dL (29.9-35.2); Mean Corpuscular Hemoglobin 29.4 pg (26.7-34.0); Mean Corpuscular Volume 93.3 fL (81.0-99.0); Mean Platelet Volume 10.7 fL (9.5-13.5); Platelet Count 538 10^3/uL (150-450); Red Blood Count 4.36 10^6/uL (4.20-5.40); Red Cell Distribution Width 13.8 % (11.0-15.0); White Blood Count 22.8 10^3/uL (4.0-11.0)
[2023-08-02] MEDS: LIDOCAINE HCL 1% 100 MG/10 ML MDV INJ ×2 (14:34→16:40)
[2023-08-02 14:46] LABS: Anion Gap 36.8; BUN Creatinine Ratio 15.9; Carbon Dioxide 9.8 mmol/L (21.0-32.0); Chloride 89 mmol/L (98-107); Estimated GFR (African America 28 (>=60); Estimated GFR (Non-African Ame 23 (>=60); Potassium 4.6 mmol/L (3.5-5.1); Sodium 131 mmol/L (136-145)
[2023-08-02 14:50] LABS: Glucose 815 mg/dL (74-106)
--- NOTE | 2023-08-02 15:24 | PC.NURSE ---
Pt vomited dark brown emesis at this time, approx 100ml. Dr Jones aware
[2023-08-02] MEDS: PANTOPRAZOLE SODIUM 40 MG VIAL IV (15:34)
--- NOTE | 2023-08-02 16:19 | ED_ITS ---
HPI - General Adult General Chief complaint: Nausea/Vomiting/Diarrhea Stated complaint: NAUSEA Time Seen by Provider: 08/02/23 10:00 Source: patient Mode of arrival: walk-in History of Present Illness HPI narrative: 28-year-old female presents for not feeling well. She is a poor historian. She has a history of diabetes and noncompliance and recent DKA. Last week she was admitted at another hospital for DKA. She's been nauseous and has been vomiting. She has a history of substance abuse as well. She hasn't had a fever or complaint of chest pain or productive cough. Symptoms came on within the last day and are continuous. Related Data Home Medications Medication Instructions Recorded Confirmed aripiprazole 5 mg tablet (Abilify) 5 mg PO DAILY 06/27/23 06/27/23 ferrous sulfate 325 mg (65 mg 325 mg PO TID 06/27/23 06/27/23 iron) tablet (Feosol) insulin glargine 100 unit/mL (3 40 unit subcut DAILY 06/27/23 06/27/23 mL) subcutaneous pen (Lantus Solostar U-100 Insulin) insulin lispro 100 unit/mL 1 sliding scale dose subcut 06/27/23 06/27/23 subcutaneous pen (Humalog KwikPen USEASDIRECTD (U-100) Insulin) metoclopramide HCl 10 mg tablet 10 mg PO ACHS PRN nausea and 06/27/23 06/27/23 (Reglan) vomiting pantoprazole 40 mg tablet,delayed 40 mg PO DAILY 06/27/23 06/27/23 release (Protonix) potassium chloride 20 mEq 20 meq PO BID 06/27/23 06/27/23 tablet,extended release (K-Tab) propranolol 80 mg capsule,24 80 mg PO DAILY 06/27/23 06/27/23 hr,extended release (Inderal LA) rivaroxaban 20 mg tablet (Xarelto) 20 mg PO QPM 06/27/23 06/27/23 sucralfate 1 gram tablet (Carafate) 1 g PO ACHS 06/27/23 06/27/23 Previous Rx's Medication Instructions Recorded ondansetron 4 mg disintegrating 4 mg PO Q6H PRN nausea and 06/29/23 tablet vomiting #20 tabs Allergies Allergy/AdvReac Type Severity Reaction Status Date / Time No Known Drug Allergies Allergy Verified 06/27/23 09:29 Review of Systems ROS Narrative A ten point review of systems is negative except as noted above. [facility] Medical History (Updated 08/02/23 @ 16:17 by Gabriele Jones MD) Chronic depression ?F32.A - Depression, unspecified (ICD-10) Cocaine abuse ?F14.10 - Cocaine abuse, uncomplicated (ICD-10) Diabetic gastroparesis associated with type 1 diabetes mellitus ?E10.43 - Type 1 diabetes mellitus with diabetic autonomic (poly)neuropathy (ICD-10) ?K31.84 - Gastroparesis (ICD-10) Diabetic keto-acidosis ?E11.10 - Type 2 diabetes mellitus with ketoacidosis without coma (ICD-10) DKA, type 1 ?E10.10 - Type 1 diabetes mellitus with ketoacidosis without coma (ICD-10) Type 1 diabetes mellitus with hyperglycemia ?E10.65 - Type 1 diabetes mellitus with hyperglycemia (ICD-10) Exam Narrative Exam Narrative: Nurses note and vital signs reviewed and patient is not hypoxic. General: The patient appears uncomfortable and is in no apparent respiratory distress. Skin: Warm, dry, no pallor noted. There is no rash noted. Head: Normocephalic, atraumatic Eye: Normal conjunctiva, no drainage Ears, Nose, Mouth, and Throat: oral mucosa is dry. Nares patent. Mouth without vesicles. Cardiovascular: Regular Rate and Rhythm, tachycardic Respiratory: Patient is in no distress, no accessory muscle use, lungs are clear to auscultation, no wheezing, rales or rhonchi Back: non-tender GI: soft and nontender, nondistended Musculoskeletal: The patient has no evidence of calf tenderness, no pitting edema, symmetrical pulses noted bilaterally Neurological: awake and alert and oriented. Psychiatric: mildly uncooperative but directable. Constitutional Vital Signs, click to edit/add: Last Vital Signs Temp 97.0 F L 08/02/23 12:55 Pulse 153 H 08/02/23 15:20 Resp 19 08/02/23 15:20 BP 103/81 08/02/23 15:15 Pulse Ox 100 08/02/23 15:20 Course Vital Signs Vital signs: Vital Signs Pulse Rate 148 H 08/02/23 10:03 Respiratory Rate 23 08/02/23 10:03 Blood Pressure 120/90 08/02/23 10:03 Pulse Oximetry 100 08/02/23 10:03 Temperature 97.0 F L 08/02/23 12:55 Pulse Rate 153 H 08/02/23 15:20 Respiratory Rate 19 08/02/23 15:20 Blood Pressure 103/81 08/02/23 15:15 Pulse Oximetry 100 08/02/23 15:20 Medical Decision Making MDM Narrative Medical decision making narrative: the patient presents with DKA. Blood sugar was just over thousand with a low white cart. Interestingly her VBG showed a pH of 7.45. Blood cultures were obtained and shee was given IV fluids. Initially the only access that could be obtained was a left tibial intraosseous access. This was utilized for fluid boluses and insulin bolus and insulin drip. Her initial rectal temperature was 97.0 and Eli hugger was applied and her body temperature came up. Attempt was made by me at right femoral vein central line. On the 1st attempt good blood return was obtained but the wire would not pass and this attempt was abandoned. On the 2nd attempt at the right femoral vein again good blood return was obtained and the wire would not pass and this also was abandoned. Subsequently left femoral triple-lumen catheter was placed in the left femoral vein by me. Good blood return and flush ?3 using usual Seldinger technique. No complications and she tolerated the procedure well. Differential Diagnosis Differential Diagnosis: DKA, pneumonia, medication noncompliance, urinary tract infection Lab Data Lab results reviewed: Yes I reviewed the patient's lab results Labs: Lab Results 08/02/23 08/02/23 08/02/23 Range/Units 09:35 09:45 13:14 WBC 22.8 H (4.0-11.0) 10^3/uL RBC 4.36 (4.20-5.40) 10^6/uL Hgb 12.8 (12.0-16.0) g/dL Hct 40.7 (36.0-48.0) % MCV 93.3 (81.0-99.0) fL MCH 29.4 (26.7-34.0) pg MCHC 31.4 (29.9-35.2) g/dL RDW 13.8 (11.0-15.0) % Plt Count 538 H (150-450) 10^3/uL MPV 10.7 (9.5-13.5) fL VBG pH 7.458 H (7.330-7.430) VBG pCO2 21.0 L (40.0-52.0) mmHg Sodium 129 L (136-145) mmol/L Potassium 6.7 H* (3.5-5.1) mmol/L Chloride 83 L* (98-107) mmol/L Carbon Dioxide 7.6 L (21.0-32.0) mmol/L Anion Gap 45.1 BUN 35.0 H (7.0-18.0) mg/dL Creatinine 2.19 H (0.55-1.02) mg/dL Est GFR ( Amer) 32 L (>=60) Est GFR (Non-Af Amer) 27 L (>=60) BUN/Creatinine Ratio 16.0 Glucose 1042 H* (74-106) mg/dL Calcium 9.1 (8.5-10.1) mg/dL Serum HCG, Qual Negative (NEGATIVE) Urine Color Lt. yellow (YELLOW) Urine Clarity Clear (CLEAR) Urine pH 6.0 (5.0-9.0) Ur Specific [place] 1.015 (1.005-1.025) Urine Protein Negative (NEG/TRACE) mg/dL Urine Glucose (UA) >=1000 A (NEGATIVE) mg/dL Urine Ketones >=80 A (NEGATIVE) mg/dL Urine Occult Blood Small A (NEGATIVE) Urine Nitrite Negative (NEGATIVE) Urine Bilirubin Small A (NEGATIVE) Urine Urobilinogen 0.2 (0.2-1.0) EU/dL Ur Leukocyte Esterase Negative (NEGATIVE) Urine RBC 0-2 (0-2) #/HPF Urine WBC 0-2 A (NONE SEEN) #/HPF Ur Squamous Epith Cells None seen (NONE/RARE) #/LPF Urine Crystals None seen (None Seen) #/HPF Urine Bacteria None seen (NONE SEEN) #/HPF Urine Casts None seen (NONE SEEN) #/LPF Urine Mucus None seen (NONE SEEN) Ur Culture Indicated? No Urine Opiates Screen Negative (NEGATIVE) Ur Buprenorphine Scrn Negative (NEGATIVE) Ur Oxycodone Screen Negative (NEGATIVE) Urine Methadone Screen Negative (NEGATIVE) Ur Propoxyphene Screen Negative (NEGATIVE) Ur Barbiturates Screen Negative (NEGATIVE) U Tricyclic Antidepress Negative (NEGATIVE) Ur Phencyclidine Scrn Negative (NEGATIVE) Ur Amphetamines Screen Negative (NEGATIVE) U Methamphetamines Scrn Negative (NEGATIVE) U Benzodiazepines Scrn Negative (NEGATIVE) Urine Cocaine Screen Negative (NEGATIVE) U Cannabinoids Screen Positive A (NEGATIVE) Ethanol Quant <3 mg/dL Acetone, Qual Moderate A (NEGATIVE) 08/02/23 Range/Units 14:13 WBC (4.0-11.0) 10^3/uL RBC (4.20-5.40) 10^6/uL Hgb (12.0-16.0) g/dL Hct (36.0-48.0) % MCV (81.0-99.0) fL MCH (26.7-34.0) pg MCHC (29.9-35.2) g/dL RDW (11.0-15.0) % Plt Count (150-450) 10^3/uL MPV (9.5-13.5) fL VBG pH (7.330-7.430) VBG pCO2 (40.0-52.0) mmHg Sodium 131 L (136-145) mmol/L Potassium 4.6 (3.5-5.1) mmol/L Chloride 89 L (98-107) mmol/L Carbon Dioxide 9.8 L (21.0-32.0) mmol/L Anion Gap 36.8 BUN 39.0 H (7.0-18.0) mg/dL Creatinine 2.46 H (0.55-1.02) mg/dL Est GFR ( Amer) 28 L (>=60) Est GFR (Non-Af Amer) 23 L (>=60) BUN/Creatinine Ratio 15.9 Glucose 815 H* (74-106) mg/dL Calcium 8.0 L (8.5-10.1) mg/dL Serum HCG, Qual (NEGATIVE) Urine Color (YELLOW) Urine Clarity (CLEAR) Urine pH (5.0-9.0) Ur Specific [place] (1.005-1.025) Urine Protein (NEG/TRACE) mg/dL Urine Glucose (UA) (NEGATIVE) mg/dL Urine Ketones (NEGATIVE) mg/dL Urine Occult Blood (NEGATIVE) Urine Nitrite (NEGATIVE) Urine Bilirubin (NEGATIVE) Urine Urobilinogen (0.2-1.0) EU/dL Ur Leukocyte Esterase (NEGATIVE) Urine RBC (0-2) #/HPF Urine WBC (NONE SEEN) #/HPF Ur Squamous Epith Cells (NONE/RARE) #/LPF Urine Crystals (None Seen) #/HPF Urine Bacteria (NONE SEEN) #/HPF Urine Casts (NONE SEEN) #/LPF Urine Mucus (NONE SEEN) Ur Culture Indicated? Urine Opiates Screen (NEGATIVE) Ur Buprenorphine Scrn (NEGATIVE) Ur Oxycodone Screen (NEGATIVE) Urine Methadone Screen (NEGATIVE) Ur Propoxyphene Screen (NEGATIVE) Ur Barbiturates Screen (NEGATIVE) U Tricyclic Antidepress (NEGATIVE) Ur Phencyclidine Scrn (NEGATIVE) Ur Amphetamines Screen (NEGATIVE) U Methamphetamines Scrn (NEGATIVE) U Benzodiazepines Scrn (NEGATIVE) Urine Cocaine Screen (NEGATIVE) U Cannabinoids Screen (NEGATIVE) Ethanol Quant mg/dL Acetone, Qual (NEGATIVE) Imaging Data Chest x-ray: Radiologist's impression: Procedure: XR chest 1V EXAMINATION: XR chest 1V HISTORY: weak , chest pain COMPARISON: XR abdomen with PA chest 07/12/2021 FINDINGS: LUNGS: No significant pulmonary parenchymal abnormalities. VASCULATURE: No increased pulmonary vasculature. PLEURA: No pneumothorax, effusion, or pleural thickening. CARDIAC: No cardiomegaly or cardiac silhouette abnormality. MEDIASTINUM: No visible mass or adenopathy. BONES: No fracture or visible bone lesion. OTHER: Negative. IMPRESSION: 1. Normal examination. Electronically authenticated by: DALI GUILLORY Date: 08/02/2023 11:31 ECG Data Attestation: I personally reviewed and interpreted this ECG as follows: (sinus tachycardia) Discharge Plan Discharge Chief Complaint: Nausea/Vomiting/Diarrhea Clinical Impression: Diabetic ketoacidosis Patient Disposition: Admitted As Inpatient Time of Disposition Decision: 16:17 Condition: Fair
[2023-08-02 16:25] LABS: Band Neutrophils Absolute 0.9 10^3/uL (0.0-0.3); Lymphocytes Absolute Manual 1.36 10^3/uL (1.20-3.80); Metamyelocytes Absolute Manual 0.68; Segmented Neut Absolute Manual 19.83 10^3/uL (1.4-6.5)
--- NOTE | 2023-08-02 16:32 | PC.NURSE ---
Assisted Dr Jones again with insertion of TRIPLE LUMEN CENTRAL LINE - femoral successful. Pt resting comfortably in bed post morphine administration. Remains on monitor. IVF and insulin running through triple lumen catheters.
[2023-08-02] MEDS: MORPHINE SULFATE 4 MG/ML VIAL IV (16:39)
[2023-08-02] MEDS: ACETAMINOPHEN 500 MG TABLET 1000 MG PO (18:17)
[2023-08-02 18:18] LABS: Anion Gap 25.6; BUN Creatinine Ratio 17.5; Calcium 7.2 mg/dL (8.5-10.1); Carbon Dioxide 16.1 mmol/L (21.0-32.0); Chloride 103 mmol/L (98-107); Estimated GFR (African America 34 (>=60); Estimated GFR (Non-African Ame 28 (>=60); Glucose 445 mg/dL (74-106); Potassium 3.7 mmol/L (3.5-5.1); Sodium 141 mmol/L (136-145)
[2023-08-02] MEDS: ONDANSETRON 4 MG RAPDIS TABLET PO ×2 (18:18→23:30)
[2023-08-02] MEDS: 0.9 % SODIUM CHLORIDE 1,000 ML 125 ML IV (18:38)
[2023-08-02] MEDS: DEXTROSE 5%-0.9% NACL 1,000 ML 1,000 ML 125 ML IV (21:39)
[2023-08-02 22:44] LABS: Anion Gap 19.9; BUN Creatinine Ratio 20.7; Calcium 7.1 mg/dL (8.5-10.1); Carbon Dioxide 19.6 mmol/L (21.0-32.0); Chloride 105 mmol/L (98-107); Estimated GFR (African America 50 (>=60); Estimated GFR (Non-African Ame 41 (>=60); Glucose 276 mg/dL (74-106); Potassium 3.5 mmol/L (3.5-5.1); Sodium 141 mmol/L (136-145)
[2023-08-02 22:52] LABS: Glucometer 537 mg/dL (74-106)
[2023-08-02 22:52] LABS: Glucometer 486 mg/dL (74-106)
[2023-08-02] MEDS: DEXTROSE 50 %-WATER 25 GM/50 ML SYRINGE IV (23:31)
[2023-08-02 23:44] LABS: Glucometer 553 mg/dL (74-106)
[2023-08-03] VITALS (111 sets, daily range): BP systolic 116–148; BP diastolic 72–102; PULSE 69–151; RESP 12–62; TEMP 36.6–37.2; O2SAT 95–100
[2023-08-03 00:28] LABS: Glucometer 473 mg/dL (74-106)
[2023-08-03 01:31] LABS: Glucometer 318 mg/dL (74-106)
[2023-08-03 02:18] LABS: Glucometer 310 mg/dL (74-106)
--- NOTE | 2023-08-03 02:36 | PC.NURSE ---
IO needle in the lt tibia removed. Pressure applied to site.
[2023-08-03 03:21] LABS: Glucometer 309 mg/dL (74-106)
[2023-08-03] MEDS: ONDANSETRON 4 MG RAPDIS TABLET PO ×3 (04:18→19:48)
[2023-08-03 04:24] LABS: Glucometer 270 mg/dL (74-106)
[2023-08-03 04:56] LABS: Glucometer 261 mg/dL (74-106)
[2023-08-03 05:23] LABS: Basophils Percent Auto 0.2 % (0.2-2.0); Hematocrit 31.4 % (36.0-48.0); Hemoglobin 10.2 g/dL (12.0-16.0); Immature Granulocytes Abs Auto 0.05 10^3/uL (0.00-0.03); Immature Granulocytes Pct Auto 0.3 % (0.0-0.5); Lymphocytes Percent Auto 6.7 % (20.5-60.0); Mean Corpuscular HGB Conc 32.5 g/dL (29.9-35.2); Mean Corpuscular Hemoglobin 29.4 pg (26.7-34.0); Mean Corpuscular Volume 90.5 fL (81.0-99.0); Neutrophils Absolute Auto 12.7 10^3/uL (1.4-6.5); Neutrophils Percent Auto 85.8 % (43.0-75.0); Platelet Count 326 10^3/uL (150-450); Red Blood Count 3.47 10^6/uL (4.20-5.40); Red Cell Distribution Width 14.1 % (11.0-15.0); White Blood Count 14.8 10^3/uL (4.0-11.0)
[2023-08-03] MEDS: DEXTROSE 5%-0.9% NACL 1,000 ML 1,000 ML 125 ML IV ×3 (05:31→21:29)
[2023-08-03 05:41] LABS: Anion Gap 15.3; BUN Creatinine Ratio 15.7; Calcium 7.8 mg/dL (8.5-10.1); Carbon Dioxide 23.1 mmol/L (21.0-32.0); Chloride 109 mmol/L (98-107); Estimated GFR (African America >60 (>=60); Estimated GFR (Non-African Ame 50 (>=60); Glucose 227 mg/dL (74-106); Potassium 3.4 mmol/L (3.5-5.1); Sodium 144 mmol/L (136-145)
[2023-08-03 06:21] LABS: Glucometer 179 mg/dL (74-106)
[2023-08-03] MEDS: INSULIN REGULAR IN 0.9 % NACL 100 UNIT/100 ML PLAST..BAG IV (07:33)
[2023-08-03 07:34] LABS: Glucometer 151 mg/dL (74-106)
[2023-08-03 08:32] LABS: Glucometer 146 mg/dL (74-106)
[2023-08-03 09:48] LABS: Glucometer 147 mg/dL (74-106)
[2023-08-03] MEDS: KETOROLAC TROMETHAMINE 30 MG/ML VIAL IVP ×3 (10:25→23:59)
[2023-08-03] MEDS: METOCLOPRAMIDE HCL 10 MG/2 ML VIAL IVP ×3 (10:29→21:25)
[2023-08-03 10:41] LABS: Glucometer 189 mg/dL (74-106)
--- NOTE | 2023-08-03 10:44 | PM.HP ---
H&P: HPI History of Present Illness Chief complaint: Nausea, vomiting, and diarrhea Narrative: 28 y/o female with history of uncontrolled DM1 and gastroparesis presents to ER with nausea, vomiting, and diarrhea. History of drug abuse and doesn't take medication regularly. Admitted to [facility] 1 week prior with DKA. Developed worsening nausea and vomiting. Not able to tolerate oral solids or liquids. Not taking insulin. Worsening symptoms and to ER. Labs showed glucose 1042 and anion gap of 39. Urine positive for THC. Chest x-ray negative. Given IV fluids and started insulin drip then admitted for treatment. Continued insulin drip and fluids. Glucose slowly improved but labs showed continued elevated anion gap. Changed IV fluids to D5. Continues to c/o severe nausea. On clear liquids and only taking small amounts. Review of Systems ROS Constitutional Denies: fever, chills or night sweats Cardiovascular Denies: chest pain, palpitations or edema Respiratory Denies: shortness of breath, cough or wheezing Gastrointestinal Reports: abdominal pain, nausea, vomiting and diarrhea Genitourinary Denies: painful urination [facility] Medical History (Updated 08/03/23 @ 10:49 by Geo Cuevas MD) Chronic depression ?F32.A - Depression, unspecified (ICD-10) Cocaine abuse ?F14.10 - Cocaine abuse, uncomplicated (ICD-10) Type 1 diabetes mellitus with hyperglycemia ?E10.65 - Type 1 diabetes mellitus with hyperglycemia (ICD-10) Meds Home Medications and Allergies Home Medications Medication Instructions Recorded Confirmed Type ferrous sulfate 325 mg (65 mg 325 mg PO BID 06/27/23 08/02/23 History iron) tablet (Feosol) insulin glargine 100 unit/mL (3 40 unit subcut DAILY 06/27/23 08/02/23 History mL) subcutaneous pen (Lantus Solostar U-100 Insulin) insulin lispro 100 unit/mL 1 sliding scale dose subcut AC 06/27/23 08/02/23 History subcutaneous pen (Humalog KwikPen (U-100) Insulin) metoclopramide HCl 10 mg tablet 10 mg PO ACHS PRN nausea and 06/27/23 08/02/23 History (Reglan) vomiting pantoprazole 40 mg tablet,delayed 40 mg PO BID 06/27/23 08/02/23 History release (Protonix) potassium chloride 20 mEq 20 meq PO BID 06/27/23 08/02/23 History tablet,extended release (K-Tab) propranolol 80 mg capsule,24 80 mg PO DAILY 06/27/23 06/27/23 History hr,extended release (Inderal LA) rivaroxaban 20 mg tablet (Xarelto) 20 mg PO QPM 06/27/23 08/02/23 History sucralfate 1 gram tablet (Carafate) 1 g PO ACHS 06/27/23 06/27/23 History ondansetron 4 mg disintegrating 4 mg PO Q6H PRN nausea and 06/29/23 08/02/23 Rx tablet vomiting #20 tabs buspirone 10 mg tablet 10 mg PO TID 08/02/23 08/02/23 History cholecalciferol (vitamin D3) 125 125 mcg PO DAILY 08/02/23 08/02/23 History mcg (5,000 unit) tablet (Vitamin D3) desvenlafaxine 50 mg 50 mg PO DAILY 08/02/23 08/02/23 History tablet,extended release 24 hr magnesium oxide 400 mg PO DAILY 08/02/23 08/02/23 History prazosin 2 mg capsule (Minipress) 2 mg PO QPM 08/02/23 08/02/23 History pregabalin 75 mg capsule (Lyrica) 75 mg PO BID 08/02/23 08/02/23 History quetiapine 25 mg tablet (Seroquel) 25 mg PO BID PRN agitation 08/02/23 08/02/23 History sumatriptan succinate 50 mg tablet See Rx Instructions PO .COMPLEX 08/02/23 08/02/23 History (Imitrex) trazodone 50 mg tablet 50 mg PO .hs PRN sleep 08/02/23 08/02/23 History ziprasidone HCl 40 mg capsule 40 mg PO .qhs 08/02/23 08/02/23 History (Geodon) Allergies Allergy/AdvReac Type Severity Reaction Status Date / Time No Known Drug Allergies Allergy Verified 06/27/23 09:29 Exam Constitutional Vital Signs, click to edit/add: Last Vital Signs Temp 98.2 F 08/03/23 09:00 Pulse 121 H 08/03/23 09:10 Resp 19 08/03/23 09:10 BP 120/79 08/03/23 07:54 Pulse Ox 98 10/12/23 09:10 O2 Del Method Room Air 08/03/23 09:00 Common normals: no apparent distress, oriented x3 and alert Eye Common normals: PERRL and EOMs intact bilaterally Respiratory Common normals: normal respiratory effort and clear to auscultation bilaterally Cardio Common normals: regular rate, regular rhythm, no gallops, no murmurs and no rub GI Inspection: normal to inspection Auscultation: normoactive bowel sounds Palpation: soft and tender (Diffuse TTP); no guarding Extremity Common normals: no pedal edema Results Labs Labs: Short CBC 08/02/23 08/03/23 Range/Units 13:14 05:10 WBC 22.8 H 14.8 H (4.0-11.0) 10^3/uL Hgb 12.8 10.2 L (12.0-16.0) g/dL Hct 40.7 31.4 L (36.0-48.0) % Plt Count 538 H 326 (150-450) 10^3/uL BMP 08/02/23 08/02/23 08/02/23 09:45 14:13 17:56 Sodium 129 L 131 L 141 Potassium 6.7 H* 4.6 3.7 Chloride 83 L* 89 L 103 Carbon Dioxide 7.6 L 9.8 L 16.1 L BUN 35.0 H 39.0 H 36.0 H Creatinine 2.19 H 2.46 H 2.06 H Glucose 1042 H* 815 H* 445 H Calcium 9.1 8.0 L 7.2 L 08/02/23 08/03/23 22:22 05:10 Sodium 141 144 Potassium 3.5 3.4 L Chloride 105 109 H Carbon Dioxide 19.6 L 23.1 BUN 31.0 H 20.0 H Creatinine 1.50 H 1.27 H Glucose 276 H 227 H Calcium 7.1 L 7.8 L Urine 08/02/23 Range/Units 09:35 Urine Color Lt. yellow (YELLOW) Urine Clarity Clear (CLEAR) Urine pH 6.0 (5.0-9.0) Ur Specific [place] 1.015 (1.005-1.025) Urine Protein Negative (NEG/TRACE) mg/dL Urine Glucose (UA) >=1000 A (NEGATIVE) mg/dL ABG ABG results: 08/02/23 13:14 VBG pH 7.458 H VBG pCO2 21.0 L Assessment and Plan Assessment and Plan (1) DKA, type 1: (2) Acute kidney injury: (3) Diabetic gastroparesis associated with type 1 diabetes mellitus: (4) Polysubstance abuse: Plan Presented with DKA and on insulin drip. Labs improved and continue to monitor. Will remain on insulin drip until anion gap normal. Monitor glucose. Continues to have severe nausea and give IV reglan. Resume home medication. Continue clear liquids until nausea improved then can advance as tolerated. Anticipate 2-3 days in hospital.
[2023-08-03 10:57] LABS: Anion Gap 12.7; BUN Creatinine Ratio 17.3; Calcium 7.8 mg/dL (8.5-10.1); Carbon Dioxide 23.6 mmol/L (21.0-32.0); Chloride 110 mmol/L (98-107); Estimated GFR (African America >60 (>=60); Estimated GFR (Non-African Ame >60 (>=60); Glucose 220 mg/dL (74-106); Potassium 3.3 mmol/L (3.5-5.1); Sodium 143 mmol/L (136-145)
[2023-08-03] MEDS: DESVENLAFAXINE SUCCINATE 50 MG TAB.ER.24H PO (11:00)
[2023-08-03] MEDS: PREGABALIN 75 MG CAPSULE PO ×2 (11:00→21:27)
[2023-08-03 11:10] LABS: pH VBG 7.158 (7.330-7.430)
--- NOTE | 2023-08-03 11:24 | CM.NOTE ---
Rounds made with Dr. Cuevas. Caroline responds yeah to all questions asked of her by Dr. Cuevas. No plan for discharge today.
--- NOTE | 2023-08-03 11:32 | SWNOTE1 ---
SW attempted to see pt, but pt was sleeping and would not wake up fully for assessment. SW to check back later.
[2023-08-03 12:33] LABS: Glucometer 154 mg/dL (74-106)
[2023-08-03 13:44] LABS: Glucometer 131 mg/dL (74-106)
[2023-08-03 14:46] LABS: Glucometer 121 mg/dL (74-106)
--- NOTE | 2023-08-03 14:47 | SWNOTE1 ---
SW met with pt to discuss positive marijuana drug screen. Pt was drowsy, but more arousbale and able to converse. Pt lives at home with her fiance. Pt voices she is safe at home, no physical/emotional abuse. Pt does admit to using marijuana at least every other day. SW asked pt if she uses for pain, pt stated yes. SW asked if this helped with her pain, pt stated yes. SW then asked if she had her medical marijuana card? Pt stated no, it cost too much. SW did express that she is buying the marijuana so it may be beneficial to save and get a medical marijuana card. SW did also mention that maybe the marijuana is not helping with pain as she has been here a few times with the same thing. SW asked if pt was interested in any kind of counseling or rehab? Pt stated she does not want any resources. SW to follow as needed.
[2023-08-03 15:27] LABS: Chloride 108 mmol/L (98-107); Potassium 3.1 mmol/L (3.5-5.1); Sodium 144 mmol/L (136-145)
[2023-08-03 15:28] LABS: Anion Gap 14.2; Calcium 7.7 mg/dL (8.5-10.1); Carbon Dioxide 24.9 mmol/L (21.0-32.0); Estimated GFR (African America >60 (>=60); Estimated GFR (Non-African Ame >60 (>=60); Glucose 114 mg/dL (74-106)
[2023-08-03 16:12] LABS: Glucometer 215 mg/dL (74-106)
[2023-08-03] MEDS: PANTOPRAZOLE SODIUM 40 MG VIAL IV (17:10)
[2023-08-03 17:22] LABS: Glucometer 190 mg/dL (74-106)
[2023-08-03 18:24] LABS: Glucometer 148 mg/dL (74-106)
[2023-08-03 19:40] LABS: Glucometer 153 mg/dL (74-106)
[2023-08-03] MEDS: ACETAMINOPHEN 500 MG TABLET 1000 MG PO (19:47)
[2023-08-03 20:25] LABS: Glucometer 396 mg/dL (74-106)
[2023-08-03 20:28] LABS: BUN Creatinine Ratio 12.4; Calcium 7.5 mg/dL (8.5-10.1); Carbon Dioxide 21.7 mmol/L (21.0-32.0); Chloride 104 mmol/L (98-107); Estimated GFR (African America >60 (>=60); Estimated GFR (Non-African Ame >60 (>=60); Glucose 270 mg/dL (74-106); Magnesium 1.7 mg/dL (1.8-2.4); Potassium 3.7 mmol/L (3.5-5.1); Sodium 135 mmol/L (136-145)
[2023-08-03] MEDS: ZIPRASIDONE HCL 20 MG CAPSULE 40 MG PO (21:25)
[2023-08-03] MEDS: FERROUS SULFATE 325 MG TABLET PO (21:26)
[2023-08-03] MEDS: RIVAROXABAN 10 MG TABLET 20 MG PO (21:27)
[2023-08-03] MEDS: TRAZODONE HCL 50 MG TABLET PO (21:28)
[2023-08-03] MEDS: POTASSIUM CHLORIDE 10 MEQ ER TABLET 20 MEQ PO (21:28)
[2023-08-03] MEDS: BUSPIRONE HCL 10 MG TABLET PO (21:31)
[2023-08-03 21:43] LABS: Glucometer 491 mg/dL (74-106)
[2023-08-03 22:37] LABS: Glucometer 446 mg/dL (74-106)
[2023-08-03 23:58] LABS: Glucometer 284 mg/dL (74-106)
[2023-08-04] VITALS (52 sets, daily range): BP systolic 87–148; BP diastolic 50–102; PULSE 72–130; RESP 0–20; TEMP 36.4–37; O2SAT 96–99
[2023-08-04] MEDS: QUETIAPINE FUMARATE 25 MG TABLET PO
[2023-08-04 01:12] LABS: Glucometer 229 mg/dL (74-106)
[2023-08-04 01:59] LABS: Glucometer 166 mg/dL (74-106)
[2023-08-04 03:01] LABS: Glucometer 144 mg/dL (74-106)
[2023-08-04 04:21] LABS: Glucometer 176 mg/dL (74-106)
[2023-08-04 04:55] LABS: Glucometer 187 mg/dL (74-106)
[2023-08-04 05:07] LABS: Basophils Percent Auto 0.5 % (0.2-2.0); Eosinophils Percent Auto 0.7 % (0.9-7.0); Hematocrit 26.6 % (36.0-48.0); Hemoglobin 8.2 g/dL (12.0-16.0); Immature Granulocytes Abs Auto 0.02 10^3/uL (0.00-0.03); Immature Granulocytes Pct Auto 0.3 % (0.0-0.5); Lymphocytes Percent Auto 32.8 % (20.5-60.0); Mean Corpuscular HGB Conc 30.8 g/dL (29.9-35.2); Mean Corpuscular Hemoglobin 29.4 pg (26.7-34.0); Mean Corpuscular Volume 95.3 fL (81.0-99.0); Mean Platelet Volume 9.6 fL (9.5-13.5); Monocytes Absolute Auto 0.4 10^3/uL (0.3-0.8); Monocytes Percent Auto 6.6 % (1.7-12.0); Neutrophils Absolute Auto 3.6 10^3/uL (1.4-6.5); Neutrophils Percent Auto 59.1 % (43.0-75.0); Platelet Count 180 10^3/uL (150-450); Red Blood Count 2.79 10^6/uL (4.20-5.40); Red Cell Distribution Width 14.1 % (11.0-15.0); White Blood Count 6.1 10^3/uL (4.0-11.0)
[2023-08-04 05:30] LABS: Anion Gap 11.6; BUN Creatinine Ratio 12.6; Calcium 7.9 mg/dL (8.5-10.1); Carbon Dioxide 23.5 mmol/L (21.0-32.0); Chloride 113 mmol/L (98-107); Estimated GFR (African America >60 (>=60); Estimated GFR (Non-African Ame >60 (>=60); Glucose 178 mg/dL (74-106); Potassium 3.1 mmol/L (3.5-5.1); Sodium 145 mmol/L (136-145)
[2023-08-04] MEDS: KETOROLAC TROMETHAMINE 30 MG/ML VIAL IVP ×3 (06:01→16:35)
[2023-08-04] MEDS: BUSPIRONE HCL 10 MG TABLET PO ×2 (06:04→15:21)
[2023-08-04] MEDS: DEXTROSE 5%-0.9% NACL 1,000 ML 1,000 ML 125 ML IV (06:04)
[2023-08-04] MEDS: INSULIN REGULAR IN 0.9 % NACL 100 UNIT/100 ML PLAST..BAG IV (06:06)
[2023-08-04 06:11] LABS: Glucometer 219 mg/dL (74-106)
[2023-08-04 06:51] LABS: Glucometer 262 mg/dL (74-106)
[2023-08-04] MEDS: CHOLECALCIFEROL (VITAMIN D3) 125 MCG/5000 UNIT TABLET PO (08:15)
[2023-08-04] MEDS: FERROUS SULFATE 325 MG TABLET PO (08:15)
[2023-08-04] MEDS: MAGNESIUM OXIDE 400 MG TABLET PO (08:15)
[2023-08-04] MEDS: METOCLOPRAMIDE HCL 10 MG/2 ML VIAL IVP ×3 (08:15→16:36)
[2023-08-04] MEDS: PREGABALIN 75 MG CAPSULE PO (08:15)
[2023-08-04] MEDS: DESVENLAFAXINE SUCCINATE 50 MG TAB.ER.24H PO (08:15)
[2023-08-04] MEDS: POTASSIUM CHLORIDE 10 MEQ ER TABLET 20 MEQ PO (08:16)
[2023-08-04 08:17] LABS: Glucometer 181 mg/dL (74-106)
[2023-08-04] MEDS: INSULIN DETEMIR 300 UNIT/3 ML INSULN.PEN 40 UNIT SUBQ (10:15)
[2023-08-04 10:22] LABS: Glucometer 161 mg/dL (74-106)
--- NOTE | 2023-08-04 11:20 | CM.NOTE ---
Rounds made with Dr. Cuevas, will discontinue IV insulin and start on home dose. Possible discharge this afternoon.
--- NOTE | 2023-08-04 11:24 | P.DS_ITS ---
DS: Providers Provider Date of admission: 08/02/23 16:55 Primary care physician: Non-Staff Physician, Consults: 08/02/23 Consult to Dietitian Routine Reason For Exam: DKA Reason for consultation: DKA DS: Diagnosis Discharge Diagnosis (1) DKA, type 1: (2) Acute kidney injury: (3) Diabetic gastroparesis associated with type 1 diabetes mellitus: (4) Polysubstance abuse: DS: Summary Hospital Course Hospital Course: Reason for admission: See H&P for details. 28 y/o female with history of uncontrolled DM1 and gastroparesis presents to ER with nausea, vomiting, and diarrhea. History of drug abuse and doesn't take medication regularly. Admitted to [facility] 1 week prior with DKA. Developed worsening nausea and vomiting. Not able to tolerate oral solids or liquids. Not taking insulin. Worsening symptoms and to ER. Labs showed glucose 1042 and anion gap of 39. Urine positive for THC. Chest x-ray negative. Given IV fluids and started insulin drip then admitted for treatment. Hospital course: Gave IV insulin bolus then started insulin drip. Labs slowly improved. Once more alert c/o severe nausea. History of gastroparesis and added IV reglan. Anion gap improved but still elevated and BS under 200. Changed IV fluids to D5 NS. BS improved and anion gap normal. Gave dose of levemir. Continued to have nausea but able to start taking liquids. Poor PO and variable BS. Nausea tolerable with medication. Discharged home in stable condition. Continue liquid diet and gradually advance as tolerated. Take 1/2 dose insulin until eating better. F/u with PCP in 1-2 weeks. Time Spent with Patient Time attestation: Total time spent providing and/or coordinating discharge services: Exam Constitutional Vital Signs, click to edit/add: Last Vital Signs Temp 98.6 F 08/04/23 08:00 Pulse 112 H 08/04/23 10:00 Resp 20 08/04/23 09:00 BP 115/80 08/04/23 08:00 Pulse Ox 99 08/04/23 08:00 O2 Del Method Room Air 08/04/23 08:00 Documenting provider has reviewed patient's vital signs: yes Common normals: no apparent distress, oriented x3 and alert HENMT Common normals: normocephalic Eye Common normals: PERRL and EOMs intact bilaterally Respiratory Common normals: normal respiratory effort and clear to auscultation bilaterally Cardio Common normals: regular rate, regular rhythm, no gallops, no murmurs and no rub GI Common normals: Normal to inspection, nondistended, normoactive bowel sounds present and non-tender Extremity Common normals: no pedal edema DS: Data Data Completed and Pending Labs on day of discharge: Labs from last 24 hours 08/04/23 08/04/23 08/04/23 10:16 08:15 06:49 WBC RBC Hgb Hct MCV MCH MCHC RDW Plt Count MPV Neut % (Auto) Lymph % (Auto) [place] % (Auto) Eos % (Auto) Baso % (Auto) Neut # (Auto) Lymph # (Auto) [place] # (Auto) Eos # (Auto) Baso # (Auto) Abs Immat Gran (auto) Imm/Tot Granulo (auto) Sodium Potassium Chloride Carbon Dioxide Anion Gap BUN Creatinine Est GFR ( Amer) Est GFR (Non-Af Amer) BUN/Creatinine Ratio Glucose Calcium Magnesium POC Glucose 161 H 181 H 262 H 08/04/23 08/04/23 08/04/23 06:00 04:53 04:50 WBC 6.1 RBC 2.79 L Hgb 8.2 L Hct 26.6 L MCV 95.3 MCH 29.4 MCHC 30.8 RDW 14.1 Plt Count 180 MPV 9.6 Neut % (Auto) 59.1 Lymph % (Auto) 32.8 [place] % (Auto) 6.6 Eos % (Auto) 0.7 L Baso % (Auto) 0.5 Neut # (Auto) 3.6 Lymph # (Auto) 2.0 [place] # (Auto) 0.4 Eos # (Auto) 0.0 Baso # (Auto) 0.0 Abs Immat Gran (auto) 0.02 Imm/Tot Granulo (auto) 0.3 Sodium 145 Potassium 3.1 L Chloride 113 H Carbon Dioxide 23.5 Anion Gap 11.6 BUN 11.0 Creatinine 0.87 Est GFR ( Amer) >60 Est GFR (Non-Af Amer) >60 BUN/Creatinine Ratio 12.6 Glucose 178 H Calcium 7.9 L Magnesium POC Glucose 219 H 187 H 08/04/23 08/04/23 08/04/23 04:18 02:56 01:56 WBC RBC Hgb Hct MCV MCH MCHC RDW Plt Count MPV Neut % (Auto) Lymph % (Auto) [place] % (Auto) Eos % (Auto) Baso % (Auto) Neut # (Auto) Lymph # (Auto) [place] # (Auto) Eos # (Auto) Baso # (Auto) Abs Immat Gran (auto) Imm/Tot Granulo (auto) Sodium Potassium Chloride Carbon Dioxide Anion Gap BUN Creatinine Est GFR ( Amer) Est GFR (Non-Af Amer) BUN/Creatinine Ratio Glucose Calcium Magnesium POC Glucose 176 H 144 H 166 H 08/04/23 08/03/23 08/03/23 01:09 23:56 22:34 WBC RBC Hgb Hct MCV MCH MCHC RDW Plt Count MPV Neut % (Auto) Lymph % (Auto) [place] % (Auto) Eos % (Auto) Baso % (Auto) Neut # (Auto) Lymph # (Auto) [place] # (Auto) Eos # (Auto) Baso # (Auto) Abs Immat Gran (auto) Imm/Tot Granulo (auto) Sodium Potassium Chloride Carbon Dioxide Anion Gap BUN Creatinine Est GFR ( Amer) Est GFR (Non-Af Amer) BUN/Creatinine Ratio Glucose Calcium Magnesium POC Glucose 229 H 284 H 446 H 08/03/23 08/03/23 08/03/23 21:38 20:24 20:03 WBC RBC Hgb Hct MCV MCH MCHC RDW Plt Count MPV Neut % (Auto) Lymph % (Auto) [place] % (Auto) Eos % (Auto) Baso % (Auto) Neut # (Auto) Lymph # (Auto) [place] # (Auto) Eos # (Auto) Baso # (Auto) Abs Immat Gran (auto) Imm/Tot Granulo (auto) Sodium 135 L Potassium 3.7 Chloride 104 Carbon Dioxide 21.7 Anion Gap 13.0 BUN 13.0 Creatinine 1.05 H Est GFR ( Amer) >60 Est GFR (Non-Af Amer) >60 BUN/Creatinine Ratio 12.4 Glucose 270 H Calcium 7.5 L Magnesium 1.7 L POC Glucose 491 H 396 H 08/03/23 08/03/23 08/03/23 19:20 18:22 17:19 WBC RBC Hgb Hct MCV MCH MCHC RDW Plt Count MPV Neut % (Auto) Lymph % (Auto) [place] % (Auto) Eos % (Auto) Baso % (Auto) Neut # (Auto) Lymph # (Auto) [place] # (Auto) Eos # (Auto) Baso # (Auto) Abs Immat Gran (auto) Imm/Tot Granulo (auto) Sodium Potassium Chloride Carbon Dioxide Anion Gap BUN Creatinine Est GFR ( Amer) Est GFR (Non-Af Amer) BUN/Creatinine Ratio Glucose Calcium Magnesium POC Glucose 153 H 148 H 190 H 08/03/23 08/03/23 08/03/23 16:09 15:07 14:44 WBC RBC Hgb Hct MCV MCH MCHC RDW Plt Count MPV Neut % (Auto) Lymph % (Auto) [place] % (Auto) Eos % (Auto) Baso % (Auto) Neut # (Auto) Lymph # (Auto) [place] # (Auto) Eos # (Auto) Baso # (Auto) Abs Immat Gran (auto) Imm/Tot Granulo (auto) Sodium 144 Potassium 3.1 L Chloride 108 H Carbon Dioxide 24.9 Anion Gap 14.2 BUN 16.0 Creatinine 1.07 H Est GFR ( Amer) >60 Est GFR (Non-Af Amer) >60 BUN/Creatinine Ratio 15.0 Glucose 114 H Calcium 7.7 L Magnesium POC Glucose 215 H 121 H 08/03/23 08/03/23 13:41 12:32 WBC RBC Hgb Hct MCV MCH MCHC RDW Plt Count MPV Neut % (Auto) Lymph % (Auto) [place] % (Auto) Eos % (Auto) Baso % (Auto) Neut # (Auto) Lymph # (Auto) [place] # (Auto) Eos # (Auto) Baso # (Auto) Abs Immat Gran (auto) Imm/Tot Granulo (auto) Sodium Potassium Chloride Carbon Dioxide Anion Gap BUN Creatinine Est GFR ( Amer) Est GFR (Non-Af Amer) BUN/Creatinine Ratio Glucose Calcium Magnesium POC Glucose 131 H 154 H Discharge Plan Discharge Disposition: Home, Self-Care Condition: Fair Discharge Medications: Continued ferrous sulfate [Feosol] 325 mg (65 mg iron) tablet 325 mg PO BID metoclopramide HCl [Reglan] 10 mg tablet 10 mg PO ACHS PRN (Reason: nausea and vomiting) pantoprazole [Protonix] 40 mg tablet,delayed release (DR/EC) 40 mg PO BID Patient Comments: last filled 05/23/23 potassium chloride [K-Tab] 20 mEq tablet extended release 20 meq PO BID propranolol [Inderal LA] 80 mg capsule,extended release 24 hr 80 mg PO DAILY Patient Comments: last filled 05/23/23 Xarelto 20 mg tablet 20 mg PO QPM Rx Instructions: must administer with evening meal sucralfate [Carafate] 1 gram tablet 1 g PO ACHS Patient Comments: last filled 05/23/23 insulin lispro [Humalog KwikPen Insulin] 100 unit/mL insulin pen 1 sliding scale dose subcut AC Rx Instructions: INJECT 2 UNITS THREE TIMES DAILY before meals plus sliding scale (0 UNITS if BLOOD SUGAR <150, 3 UNITS 150-200, 5 UNITS 201-250, 8 UNITS 251-300, 10 UNITS 301-350, 12 UNITS 351-400, 15 UNITS >400 and call physician) max 51 UNITS DAILY insulin glargine [Lantus Solostar U-100 Insulin] 100 unit/mL (3 mL) insulin pen 40 unit subcut DAILY ondansetron 4 mg tablet,disintegrating 4 mg PO Q6H PRN (Reason: nausea and vomiting) Qty: 20 0RF sumatriptan succinate [Imitrex] 50 mg tablet See Rx Instructions .ROUTE .COMPLEX Rx Instructions: take 1 tab at onset of headache; if no relief may repeat 1 tab after at least 2 hrs; max = 4 tabs/24 hr buspirone 10 mg tablet 10 mg PO TID cholecalciferol (vitamin D3) [Vitamin D3] 125 mcg (5,000 unit) tablet 125 mcg PO DAILY desvenlafaxine 50 mg tablet extended release 24 hr 50 mg PO DAILY magnesium oxide 400 mg magnesium capsule 400 mg PO DAILY prazosin [Minipress] 2 mg capsule 2 mg PO QPM pregabalin [Lyrica] 75 mg capsule 75 mg PO BID quetiapine [Seroquel] 25 mg tablet 25 mg PO BID PRN (Reason: agitation) trazodone 50 mg tablet 50 mg PO .hs PRN (Reason: sleep) ziprasidone HCl [Geodon] 40 mg capsule 40 mg PO .qhs Rx Instructions: give with food (meal/snack) Activity: resume usual activities as tolerated Diet: advance to your usual diet Forms: Portal Instructions Referrals: Physician,Non-Staff, MD [Primary Care Provider] - 1 week
[2023-08-04] MEDS: INSULIN ASPART 300 UNIT/3 ML PEN SUBQ ×2 (12:04→16:36)
[2023-08-04 12:15] LABS: Glucometer 291 mg/dL (74-106)
[2023-08-04] MEDS: PANTOPRAZOLE SODIUM 40 MG VIAL IV (15:21)
[2023-08-04 16:22] LABS: Glucometer 347 mg/dL (74-106)
--- NOTE | 2023-08-04 18:12 | DIETREC ---
Pt refused therapeutic diet education in-house. She may accept outpatient diet counseling if ordered.
--- NOTE | 2023-08-07 12:23 | CM.DCFOLLOWU ---
Discharge Follow Up Call attempt #1, no answer at this time.
--- NOTE | 2023-08-08 15:39 | CM.DCFOLLOWU ---
Pt in ER- contacted 08/08
== END 2023-08-04 17:30 | disposition home or self-care (01) | DRG 420 ==
LOC: ER 16:17 → ICU 17:02
PROVIDERS: Admitting Provider Internal Medicine; Emergency Provider Emergency Medicine; Visit Provider Family Medicine
DX: E10.10 Type 1 diabetes mellitus with ketoacidosis without coma (principal); E10.43 Type 1 diabetes mellitus with diabetic autonomic (poly)neuropathy; K31.84 Gastroparesis; N17.9 Acute kidney failure, unspecified; F32.A Depression, unspecified; F14.10 Cocaine abuse, uncomplicated; F19.10 Other psychoactive substance abuse, uncomplicated; R82.5 Elevated urine levels of drugs, medicaments and biological substances; T38.3X6A Underdosing of insulin and oral hypoglycemic [antidiabetic] drugs, initial encounter; Z91.128 Patient's intentional underdosing of medication regimen for other reason; Z79.01 Long term (current) use of anticoagulants; Z79.899 Other long term (current) drug therapy; Z79.4 Long term (current) use of insulin
CPT/HCPCS: 36415; 36680; 51702; 71045; 80048; 80307; 80320; 81001; 82009; 82800; 82948; 83735; 84703; 85025; 85027; 87040; 93005; 96361; 96374; 96375; 96376; 99285

== ENCOUNTER 2023-08-08 09:52 | Emergency (ER) | payer OTHER, SELFPAY ==
[2023-08-08] VITALS (28 sets, daily range): BP systolic 108–141; BP diastolic 68–104; PULSE 127–149; RESP 13–31; TEMP 36.5; O2SAT 99–100; BMI 19.5
--- NOTE | 2023-08-08 09:59 | ECG_ITS ---
[facility] Test Date: 2023-08-08 Pat Name: ONESIMO JORDAN Department: Room: - Gender: Female Warehouseman: : 1995 Requested By: [id number] Order Number: [id number] Reading MD: DORINA PALENCIA Measurements Intervals [place] Rate: 135 P: 84 AL: 108 QRS: 73 QRSD: 72 T: 14 QT: 286 QTc: 365 Interpretive Statements 1120 Sinus tachycardia 2210 Short AL interval [address] & [place] abnormality 9150 abnormal ECG Compared to ECG 08/02/2023 10:15:24 Short AL interval now present ST (T wave) deviation still present Electronically Signed On 08-09-2023 7:02:43 EDT by DORINA PALENCIA
--- NOTE | 2023-08-08 10:01 | ED.GENADUL1 ---
HPI - General Adult General Chief complaint: Weakness Stated complaint: GENERAL WEAKNESS Time Seen by Provider: 08/08/23 09:56 History of Present Illness HPI narrative: 28-year-old female presents for vomiting. She is a poor and reluctant historian. It is very difficult to get a good history from her, she doesn't answer most questions. She has a history of diabetes and recently had DKA. She had been admitted at this hospital. It's not clear when her symptoms started this time. Related Data Home Medications Medication Instructions Recorded Confirmed ferrous sulfate 325 mg (65 mg 325 mg PO BID 06/27/23 08/08/23 iron) tablet (Feosol) insulin glargine 100 unit/mL (3 40 unit subcut DAILY 06/27/23 08/08/23 mL) subcutaneous pen (Lantus Solostar U-100 Insulin) insulin lispro 100 unit/mL 1 sliding scale dose subcut AC 06/27/23 08/08/23 subcutaneous pen (Humalog KwikPen (U-100) Insulin) metoclopramide HCl 10 mg tablet 10 mg PO ACHS PRN nausea and 06/27/23 08/08/23 (Reglan) vomiting pantoprazole 40 mg tablet,delayed 40 mg PO BID 06/27/23 08/08/23 release (Protonix) propranolol 80 mg capsule,24 80 mg PO DAILY 06/27/23 08/08/23 hr,extended release (Inderal LA) rivaroxaban 20 mg tablet (Xarelto) 20 mg PO QPM 06/27/23 08/08/23 sucralfate 1 gram tablet (Carafate) 1 g PO ACHS 06/27/23 08/08/23 buspirone 10 mg tablet 10 mg PO TID 08/02/23 08/08/23 cholecalciferol (vitamin D3) 125 125 mcg PO DAILY 08/02/23 08/08/23 mcg (5,000 unit) tablet (Vitamin D3) desvenlafaxine 50 mg 50 mg PO DAILY 08/02/23 08/08/23 tablet,extended release 24 hr magnesium oxide 400 mg PO DAILY 08/02/23 08/08/23 prazosin 2 mg capsule (Minipress) 2 mg PO QPM 08/02/23 08/08/23 pregabalin 75 mg capsule (Lyrica) 75 mg PO BID 08/02/23 08/08/23 quetiapine 25 mg tablet (Seroquel) 25 mg PO BID PRN agitation 08/02/23 08/08/23 sumatriptan succinate 50 mg tablet See Rx Instructions PO .COMPLEX 08/02/23 08/08/23 (Imitrex) trazodone 50 mg tablet 50 mg PO .hs PRN sleep 08/02/23 08/08/23 ziprasidone HCl 40 mg capsule 40 mg PO .qhs 08/02/23 08/08/23 (Geodon) Previous Rx's Medication Instructions Recorded ondansetron 4 mg disintegrating 4 mg PO Q6H PRN nausea and 06/29/23 tablet vomiting #20 tabs Allergies Allergy/AdvReac Type Severity Reaction Status Date / Time No Known Drug Allergies Allergy Verified 06/27/23 09:29 Review of Systems ROS Narrative not obtainable, uncooperative [facility] Medical History (Updated 08/08/23 @ 17:14 by Gabriele Jones MD) Chronic depression ?F32.A - Depression, unspecified (ICD-10) Cocaine abuse ?F14.10 - Cocaine abuse, uncomplicated (ICD-10) Diabetic gastroparesis associated with type 1 diabetes mellitus ?E10.43 - Type 1 diabetes mellitus with diabetic autonomic (poly)neuropathy (ICD-10) ?K31.84 - Gastroparesis (ICD-10) DKA, type 1 ?E10.10 - Type 1 diabetes mellitus with ketoacidosis without coma (ICD-10) Polysubstance abuse ?F19.10 - Other psychoactive substance abuse, uncomplicated (ICD-10) Type 1 diabetes mellitus with hyperglycemia ?E10.65 - Type 1 diabetes mellitus with hyperglycemia (ICD-10) Exam Narrative Exam Narrative: Nurses note and vital signs reviewed and patient is not hypoxic. General: The patient appears well and in no apparent distress. Patient is resting comfortably on cart. Skin: Warm, dry, no pallor noted. There is no rash noted. Head: Normocephalic, atraumatic Eye: Normal conjunctiva, no drainage Ears, Nose, Mouth, and Throat: oral mucosa is mildly dry. Nares patent. Cardiovascular: Regular Rate and Rhythm Respiratory: Patient is in no distress, no accessory muscle use, lungs are clear to auscultation, no wheezing, rales or rhonchi Back: non-tender GI: nontender and nondistended Musculoskeletal: The right leg is swollen compared to the contralateral Neurological: awake and alert Psychiatric: uncooperative Constitutional Vital Signs, click to edit/add: Last Vital Signs Temp 97.7 F 08/08/23 09:57 Pulse 132 H 08/08/23 16:30 Resp 27 H 08/08/23 16:30 BP 108/68 08/08/23 16:30 Pulse Ox 100 08/08/23 16:30 O2 Del Method Room Air 08/08/23 10:11 Course Vital Signs Vital signs: Vital Signs Temperature 97.7 F 08/08/23 09:57 Pulse Rate 140 H 08/08/23 09:57 Respiratory Rate 20 08/08/23 09:57 Blood Pressure 139/87 08/08/23 09:57 Pulse Oximetry 100 08/08/23 09:57 Temperature 97.7 F 08/08/23 09:57 Pulse Rate 132 H 08/08/23 16:30 Respiratory Rate 27 H 08/08/23 16:30 Blood Pressure 108/68 08/08/23 16:30 Pulse Oximetry 100 08/08/23 16:30 Oxygen Delivery Method Room Air 08/08/23 10:11 Medical Decision Making MDM Narrative Medical decision making narrative: the patient again presents with DKA. Fluid boluses were given and she was given an insulin bolus and then placed on insulin drip. Her blood sugar has been coming down. The right leg was noted to be swollen and ultrasound was ordered which shows increase in the size for deep vein thrombosis. She is supposed to be taking Xarelto but I'm not convinced that she's been compliant. She's not compliant with her other medications as well. She is started on IV heparin drip after the bolus. She is going to be transferred for possible vascular surgery intervention. I've spoken to Dr. Rodriguez at [facility] who accepts the patient. She is stable and agreeable for transfer. the patient has tested positive for cannabinoids and cocaine. Differential Diagnosis Differential Diagnosis: DKA, deep vein thrombosis, medication noncompliance, substance abuse Lab Data Lab results reviewed: Yes I reviewed the patient's lab results Labs: Lab Results 08/08/23 08/08/23 08/08/23 Range/Units 10:13 10:16 10:40 WBC 11.9 H (4.0-11.0) 10^3/uL RBC 4.08 L (4.20-5.40) 10^6/uL Hgb 11.9 L (12.0-16.0) g/dL Hct 37.8 (36.0-48.0) % MCV 92.6 (81.0-99.0) fL MCH 29.2 (26.7-34.0) pg MCHC 31.5 (29.9-35.2) g/dL RDW 13.8 (11.0-15.0) % Plt Count 343 (150-450) 10^3/uL MPV 10.0 (9.5-13.5) fL Neut % (Auto) 75.9 H (43.0-75.0) % Lymph % (Auto) 15.5 L (20.5-60.0) % [place] % (Auto) 6.6 (1.7-12.0) % Eos % (Auto) 0.0 L (0.9-7.0) % Baso % (Auto) 0.7 (0.2-2.0) % Neut # (Auto) 9.0 H (1.4-6.5) 10^3/uL Lymph # (Auto) 1.9 (1.2-3.8) 10^3/uL [place] # (Auto) 0.8 (0.3-0.8) 10^3/uL Eos # (Auto) 0.0 (0.0-0.7) 10^3/uL Baso # (Auto) 0.1 (0.0-0.1) 10^3/uL Abs Immat Gran (auto) 0.16 H (0.00-0.03) 10^3/uL Imm/Tot Granulo (auto) 1.3 H (0.0-0.5) % PT (9.0-11.6) sec INR APTT (22.3-36.2) sec VBG pH 7.280 L (7.330-7.430) VBG pCO2 27.8 L (40.0-52.0) mmHg Sodium 136 (136-145) mmol/L Potassium 4.5 (3.5-5.1) mmol/L Chloride 99 (98-107) mmol/L Carbon Dioxide 14.3 L (21.0-32.0) mmol/L Anion Gap 27.2 BUN 21.0 H (7.0-18.0) mg/dL Creatinine 1.39 H (0.55-1.02) mg/dL Est GFR ( Amer) 54 L (>=60) Est GFR (Non-Af Amer) 45 L (>=60) BUN/Creatinine Ratio 15.1 Glucose 352 H (74-106) mg/dL Calcium 9.4 (8.5-10.1) mg/dL Total Bilirubin 0.6 (0.2-1.0) mg/dL Direct Bilirubin 0.1 (0.0-0.2) mg/dL AST 13 L (15-37) U/L ALT 25 (14-59) U/L Alkaline Phosphatase 131 H (46-116) U/L Troponin I High Sens <4.0 L (4.0-51.3) pg/mL Total Protein 7.7 (6.4-8.2) g/dL Albumin 3.6 (3.4-5.0) g/dL Globulin 4.1 g/dL Albumin/Globulin Ratio 0.9 Amylase 72 (25-115) U/L Lipase 71.0 (16.0-77.0) U/L Serum HCG, Qual Negative (NEGATIVE) Urine Color Lt. yellow (YELLOW) Urine Clarity Clear (CLEAR) Urine pH 5.5 (5.0-9.0) Ur Specific [place] 1.025 (1.005-1.025) Urine Protein Trace (NEG/TRACE) mg/dL Urine Glucose (UA) 500 A (NEGATIVE) mg/dL Urine Ketones >=80 A (NEGATIVE) mg/dL Urine Occult Blood Trace-i (NEGATIVE) Urine Nitrite Negative (NEGATIVE) Urine Bilirubin Moderate A (NEGATIVE) Urine Urobilinogen 0.2 (0.2-1.0) EU/dL Ur Leukocyte Esterase Negative (NEGATIVE) Urine RBC 0-2 (0-2) #/HPF Urine WBC None seen (NONE SEEN) #/HPF Ur Squamous Epith Cells Rare (NONE/RARE) #/LPF Urine Crystals None seen (None Seen) #/HPF Urine Bacteria None seen (NONE SEEN) #/HPF Urine Casts Seen A (NONE SEEN) #/LPF Hyaline Casts Rare Urine Mucus None seen (NONE SEEN) Urine Yeast Seen A (NONE SEEN) Ur Culture Indicated? No Urine Opiates Screen Negative (NEGATIVE) Ur Buprenorphine Scrn Negative (NEGATIVE) Ur Oxycodone Screen Negative (NEGATIVE) Urine Methadone Screen Negative (NEGATIVE) Ur Propoxyphene Screen Negative (NEGATIVE) Ur Barbiturates Screen Negative (NEGATIVE) U Tricyclic Antidepress Negative (NEGATIVE) Ur Phencyclidine Scrn Negative (NEGATIVE) Ur Amphetamines Screen Negative (NEGATIVE) U Methamphetamines Scrn Negative (NEGATIVE) U Benzodiazepines Scrn Negative (NEGATIVE) Urine Cocaine Screen Positive A (NEGATIVE) U Cannabinoids Screen Positive A (NEGATIVE) Ethanol Quant <3 mg/dL Acetone, Qual Small A (NEGATIVE) POC Glucose 323 H (74-106) mg/dL 08/08/23 08/08/23 08/08/23 Range/Units 13:01 13:54 14:36 WBC (4.0-11.0) 10^3/uL RBC (4.20-5.40) 10^6/uL Hgb (12.0-16.0) g/dL Hct (36.0-48.0) % MCV (81.0-99.0) fL MCH (26.7-34.0) pg MCHC (29.9-35.2) g/dL RDW (11.0-15.0) % Plt Count (150-450) 10^3/uL MPV (9.5-13.5) fL Neut % (Auto) (43.0-75.0) % Lymph % (Auto) (20.5-60.0) % [place] % (Auto) (1.7-12.0) % Eos % (Auto) (0.9-7.0) % Baso % (Auto) (0.2-2.0) % Neut # (Auto) (1.4-6.5) 10^3/uL Lymph # (Auto) (1.2-3.8) 10^3/uL [place] # (Auto) (0.3-0.8) 10^3/uL Eos # (Auto) (0.0-0.7) 10^3/uL Baso # (Auto) (0.0-0.1) 10^3/uL Abs Immat Gran (auto) (0.00-0.03) 10^3/uL Imm/Tot Granulo (auto) (0.0-0.5) % PT 9.3 (9.0-11.6) sec INR <0.93 APTT <20.0 L (22.3-36.2) sec VBG pH (7.330-7.430) VBG pCO2 (40.0-52.0) mmHg Sodium (136-145) mmol/L Potassium (3.5-5.1) mmol/L Chloride (98-107) mmol/L Carbon Dioxide (21.0-32.0) mmol/L Anion Gap BUN (7.0-18.0) mg/dL Creatinine (0.55-1.02) mg/dL Est GFR ( Amer) (>=60) Est GFR (Non-Af Amer) (>=60) BUN/Creatinine Ratio Glucose (74-106) mg/dL Calcium (8.5-10.1) mg/dL Total Bilirubin (0.2-1.0) mg/dL Direct Bilirubin (0.0-0.2) mg/dL AST (15-37) U/L ALT (14-59) U/L Alkaline Phosphatase (46-116) U/L Troponin I High Sens (4.0-51.3) pg/mL Total Protein (6.4-8.2) g/dL Albumin (3.4-5.0) g/dL Globulin g/dL Albumin/Globulin Ratio Amylase (25-115) U/L Lipase (16.0-77.0) U/L Serum HCG, Qual (NEGATIVE) Urine Color (YELLOW) Urine Clarity (CLEAR) Urine pH (5.0-9.0) Ur Specific [place] (1.005-1.025) Urine Protein (NEG/TRACE) mg/dL Urine Glucose (UA) (NEGATIVE) mg/dL Urine Ketones (NEGATIVE) mg/dL Urine Occult Blood (NEGATIVE) Urine Nitrite (NEGATIVE) Urine Bilirubin (NEGATIVE) Urine Urobilinogen (0.2-1.0) EU/dL Ur Leukocyte Esterase (NEGATIVE) Urine RBC (0-2) #/HPF Urine WBC (NONE SEEN) #/HPF Ur Squamous Epith Cells (NONE/RARE) #/LPF Urine Crystals (None Seen) #/HPF Urine Bacteria (NONE SEEN) #/HPF Urine Casts (NONE SEEN) #/LPF Hyaline Casts Urine Mucus (NONE SEEN) Urine Yeast (NONE SEEN) Ur Culture Indicated? Urine Opiates Screen (NEGATIVE) Ur Buprenorphine Scrn (NEGATIVE) Ur Oxycodone Screen (NEGATIVE) Urine Methadone Screen (NEGATIVE) Ur Propoxyphene Screen (NEGATIVE) Ur Barbiturates Screen (NEGATIVE) U Tricyclic Antidepress (NEGATIVE) Ur Phencyclidine Scrn (NEGATIVE) Ur Amphetamines Screen (NEGATIVE) U Methamphetamines Scrn (NEGATIVE) U Benzodiazepines Scrn (NEGATIVE) Urine Cocaine Screen (NEGATIVE) U Cannabinoids Screen (NEGATIVE) Ethanol Quant mg/dL Acetone, Qual (NEGATIVE) POC Glucose 480 H 432 H (74-106) mg/dL 08/08/23 08/08/23 08/08/23 Range/Units 14:52 15:50 16:53 WBC (4.0-11.0) 10^3/uL RBC (4.20-5.40) 10^6/uL Hgb (12.0-16.0) g/dL Hct (36.0-48.0) % MCV (81.0-99.0) fL MCH (26.7-34.0) pg MCHC (29.9-35.2) g/dL RDW (11.0-15.0) % Plt Count (150-450) 10^3/uL MPV (9.5-13.5) fL Neut % (Auto) (43.0-75.0) % Lymph % (Auto) (20.5-60.0) % [place] % (Auto) (1.7-12.0) % Eos % (Auto) (0.9-7.0) % Baso % (Auto) (0.2-2.0) % Neut # (Auto) (1.4-6.5) 10^3/uL Lymph # (Auto) (1.2-3.8) 10^3/uL [place] # (Auto) (0.3-0.8) 10^3/uL Eos # (Auto) (0.0-0.7) 10^3/uL Baso # (Auto) (0.0-0.1) 10^3/uL Abs Immat Gran (auto) (0.00-0.03) 10^3/uL Imm/Tot Granulo (auto) (0.0-0.5) % PT (9.0-11.6) sec INR APTT (22.3-36.2) sec VBG pH (7.330-7.430) VBG pCO2 (40.0-52.0) mmHg Sodium (136-145) mmol/L Potassium (3.5-5.1) mmol/L Chloride (98-107) mmol/L Carbon Dioxide (21.0-32.0) mmol/L Anion Gap BUN (7.0-18.0) mg/dL Creatinine (0.55-1.02) mg/dL Est GFR ( Amer) (>=60) Est GFR (Non-Af Amer) (>=60) BUN/Creatinine Ratio Glucose (74-106) mg/dL Calcium (8.5-10.1) mg/dL Total Bilirubin (0.2-1.0) mg/dL Direct Bilirubin (0.0-0.2) mg/dL AST (15-37) U/L ALT (14-59) U/L Alkaline Phosphatase (46-116) U/L Troponin I High Sens (4.0-51.3) pg/mL Total Protein (6.4-8.2) g/dL Albumin (3.4-5.0) g/dL Globulin g/dL Albumin/Globulin Ratio Amylase (25-115) U/L Lipase (16.0-77.0) U/L Serum HCG, Qual (NEGATIVE) Urine Color (YELLOW) Urine Clarity (CLEAR) Urine pH (5.0-9.0) Ur Specific [place] (1.005-1.025) Urine Protein (NEG/TRACE) mg/dL Urine Glucose (UA) (NEGATIVE) mg/dL Urine Ketones (NEGATIVE) mg/dL Urine Occult Blood (NEGATIVE) Urine Nitrite (NEGATIVE) Urine Bilirubin (NEGATIVE) Urine Urobilinogen (0.2-1.0) EU/dL Ur Leukocyte Esterase (NEGATIVE) Urine RBC (0-2) #/HPF Urine WBC (NONE SEEN) #/HPF Ur Squamous Epith Cells (NONE/RARE) #/LPF Urine Crystals (None Seen) #/HPF Urine Bacteria (NONE SEEN) #/HPF Urine Casts (NONE SEEN) #/LPF Hyaline Casts Urine Mucus (NONE SEEN) Urine Yeast (NONE SEEN) Ur Culture Indicated? Urine Opiates Screen (NEGATIVE) Ur Buprenorphine Scrn (NEGATIVE) Ur Oxycodone Screen (NEGATIVE) Urine Methadone Screen (NEGATIVE) Ur Propoxyphene Screen (NEGATIVE) Ur Barbiturates Screen (NEGATIVE) U Tricyclic Antidepress (NEGATIVE) Ur Phencyclidine Scrn (NEGATIVE) Ur Amphetamines Screen (NEGATIVE) U Methamphetamines Scrn (NEGATIVE) U Benzodiazepines Scrn (NEGATIVE) Urine Cocaine Screen (NEGATIVE) U Cannabinoids Screen (NEGATIVE) Ethanol Quant mg/dL Acetone, Qual (NEGATIVE) POC Glucose 227 H 147 H 270 H (74-106) mg/dL Imaging Data Chest x-ray: Radiologist's impression: Procedure: US venous doppler LE RT US venous doppler LE RT, 08/08/2023 10:53 AM EDT, OH001 INDICATION: swelling COMPARISON: None Technique: Duplex Doppler sonographic images of the right lower extremity venous system were obtained. FINDINGS: Nonocclusive thrombus is seen within the common femoral vein and proximal superficial femoral vein. There is apparent occlusive thrombus in the distal right external iliac vein and profunda femoris. The visualized distal IVC appears patent. The popliteal vein is patent. There is a 3.5 x 2.3 x 0.9 cm fluid collection in the popliteal fossa likely representing a Snow's cyst. IMPRESSION: The study is positive for deep venous thrombosis in the right lower extremity Electronically authenticated by: BUCK VACA Date: 08/08/2023 11:53 Critical Care Time Critical Care Time Critical Care Time: Yes Total Critical Care Time: 45 Attestation: Due to the high probability of sudden and clinically significant deterioration in the patient's condition he/she required the highest level of my preparedness to intervene urgently I provided critical care time including documentation time, medication orders and management, reevaluation, vital sign assessment, ordering and reviewing of lab tests, ordering and reviewing of x-ray studies, and admission orders. Aggregate critical care time is 45 minutes including only time during which I was engaged in work directly related to his/her care and did not include time spent treating other patients simultaneously. Discharge Plan Discharge Chief Complaint: Weakness Clinical Impression: DKA (diabetic ketoacidosis), DVT (deep venous thrombosis), Polysubstance abuse [facility] Time of Disposition Decision: 17:09 Discharge Location: [facility] Condition: Fair Mode of Transportation: EMS Procedures ED Procedure Instructions Procedures Procedures: the following procedure was performed by me. Left femoral vein triple-lumen catheter placed. Local infiltration was carried out with one percent lidocaine without epinephrine and area was prepped thoroughly and draped sterilely. 1st attempt to locate the femoral vein resulted in arterial blood. The needle was removed and pressure was applied and then the femoral vein was cannulated and using usual Seldinger technique triple-lumen catheter was placed. No pulsatile blood present. Good blood return and flush ?3 and the line was secured in place.
[2023-08-08 10:14] LABS: Glucometer 323 mg/dL (74-106)
--- NOTE | 2023-08-08 10:20 | XR_ITS ---
The [address] [address] Patient Name: ONESIMO JORDAN MRN: [id number] date: 1995 Sex: F Assigned Patient Location: ED.MAIN Current Patient Location: ER Accession/Order Number: [id number] Exam Date: 08/08/2023 10:15 Report Date: 08/08/2023 10:32 At the request of: DIMA MORGAN Procedure: XR chest 1V EXAM: XR chest 1V HISTORY: . diabetes, vomiting . COMPARISON: 08/02/2023 TECHNIQUE: Single view of the chest FINDINGS: Heart and vascularity are unremarkable. Lungs are free of focal infiltrates. EKG leads overlie the chest. XR/XR chest 1V IMPRESSION: No acute heart or lung disease identified. Electronically authenticated by: AIDA WATSON Date: 08/08/2023 10:32
[2023-08-08] MEDS: 0.9 % SODIUM CHLORIDE 1,000 ML 1000 ML IV ×2 (10:21→12:51)
[2023-08-08] MEDS: ONDANSETRON PF 4 MG/2 ML VIAL IV ×4 (10:21→18:36)
--- NOTE | 2023-08-08 10:24 | PC.NURSE ---
Right leg swelling observed, DR notified
[2023-08-08 10:25] LABS: PCO2 VBG 27.8 mmHg (40.0-52.0)
[2023-08-08 10:31] LABS: Basophils Absolute Auto 0.1 10^3/uL (0.0-0.1); Basophils Percent Auto 0.7 % (0.2-2.0); Hematocrit 37.8 % (36.0-48.0); Hemoglobin 11.9 g/dL (12.0-16.0); Immature Granulocytes Abs Auto 0.16 10^3/uL (0.00-0.03); Immature Granulocytes Pct Auto 1.3 % (0.0-0.5); Lymphocytes Absolute Auto 1.9 10^3/uL (1.2-3.8); Lymphocytes Percent Auto 15.5 % (20.5-60.0); Mean Corpuscular HGB Conc 31.5 g/dL (29.9-35.2); Mean Corpuscular Hemoglobin 29.2 pg (26.7-34.0); Mean Corpuscular Volume 92.6 fL (81.0-99.0); Monocytes Absolute Auto 0.8 10^3/uL (0.3-0.8); Monocytes Percent Auto 6.6 % (1.7-12.0); Neutrophils Percent Auto 75.9 % (43.0-75.0); Platelet Count 343 10^3/uL (150-450); Red Blood Count 4.08 10^6/uL (4.20-5.40); Red Cell Distribution Width 13.8 % (11.0-15.0); White Blood Count 11.9 10^3/uL (4.0-11.0)
[2023-08-08 10:32] LABS: Acetone SMALL (NEGATIVE)
--- NOTE | 2023-08-08 10:32 | US_ITS ---
The [address] [address] Patient Name: ONESIMO JORDAN MRN: [id number] date: 1995 Sex: F Assigned Patient Location: ER Current Patient Location: ER Accession/Order Number: [id number] Exam Date: 08/08/2023 10:53 Report Date: 08/08/2023 11:53 At the request of: DIMA MORGAN Procedure: US venous doppler LE RT US venous doppler LE RT, 08/08/2023 10:53 AM EDT, OH001 INDICATION: swelling COMPARISON: None Technique: Duplex Doppler sonographic images of the right lower extremity venous system were obtained. FINDINGS: Nonocclusive thrombus is seen within the common femoral vein and proximal superficial femoral vein. There is apparent occlusive thrombus in the distal right external iliac vein and profunda femoris. The visualized distal IVC appears patent. The popliteal vein is patent. There is a 3.5 x 2.3 x 0.9 cm fluid collection in the popliteal fossa likely representing a Snow's cyst. US/US venous doppler LE RT IMPRESSION: The study is positive for deep venous thrombosis in the right lower extremity Electronically authenticated by: BUCK VACA Date: 08/08/2023 11:53
[2023-08-08 10:34] LABS: HCG Qualitative NEGATIVE (NEGATIVE)
[2023-08-08 10:50] LABS: Alanine Aminotransferase 25 U/L (14-59); Albumin Globulin Ratio 0.9; Albumin Level 3.6 g/dL (3.4-5.0); Alkaline Phosphatase 131 U/L (46-116); Amylase 72 U/L (25-115); Anion Gap 27.2; Aspartate Amino Transferase 13 U/L (15-37); BUN Creatinine Ratio 15.1; Bilirubin Direct 0.1 mg/dL (0.0-0.2); Bilirubin Total 0.6 mg/dL (0.2-1.0); Calcium 9.4 mg/dL (8.5-10.1); Carbon Dioxide 14.3 mmol/L (21.0-32.0); Chloride 99 mmol/L (98-107); Estimated GFR (African America 54 (>=60); Estimated GFR (Non-African Ame 45 (>=60); Ethanol <3 mg/dL; Globulin 4.1 g/dL; Glucose 352 mg/dL (74-106); Potassium 4.5 mmol/L (3.5-5.1); Sodium 136 mmol/L (136-145); Total Protein 7.7 g/dL (6.4-8.2); Troponin I High Sensitivity <4.0 pg/mL (4.0-51.3)
[2023-08-08 10:50] LABS: Bilirubin Urine MODERATE (NEGATIVE); Blood Urine TRACE-I (NEGATIVE); Clarity Urine CLEAR (CLEAR); Color Urine LT. YELLOW (YELLOW); Glucose Urine UA 500 mg/dL (NEGATIVE); Ketones Urine >=80 mg/dL (NEGATIVE); Leukocyte Esterase Urine NEGATIVE (NEGATIVE); Nitrite Urine NEGATIVE (NEGATIVE); Protein Urine TRACE mg/dL (NEG/TRACE); Specific Gravity Urine 1.025 (1.005-1.025); Urobilinogen Urine 0.2 EU/dL (0.2-1.0); pH Urine 5.5 (5.0-9.0)
[2023-08-08 11:02] LABS: Bacteria Urine NONE SEEN #/HPF (NONE SEEN); Cast Seen? SEEN #/LPF (NONE SEEN); Crystals Seen? None Seen #/HPF (None Seen); Hyaline Casts Urine RARE; Mucus Urine NONE SEEN (NONE SEEN); RBC Urine 0-2 #/HPF (0-2); Squamous Epithelial Cell Urine RARE #/LPF (NONE/RARE); Urine Culture Indicated NO; WBC Urine NONE SEEN #/HPF (NONE SEEN)
[2023-08-08 11:11] LABS: Amphetamine Screen Urine NEGATIVE (NEGATIVE); Barbiturates Screen Urine NEGATIVE (NEGATIVE); Benzodiazepines Screen Urine NEGATIVE (NEGATIVE); Buprenorphine Screen Urine NEGATIVE (NEGATIVE); Cannabinoid Screen Urine POSITIVE (NEGATIVE); Cocaine Screen Urine POSITIVE (NEGATIVE); Methadone Screen Urine NEGATIVE (NEGATIVE); Methamphetamines Screen Urine NEGATIVE (NEGATIVE); Opiate Screen Urine NEGATIVE (NEGATIVE); Oxycodone Screen Urine NEGATIVE (NEGATIVE); Phencyclidine Screen Urine NEGATIVE (NEGATIVE); Tricyclic Antidepressant Urine NEGATIVE (NEGATIVE)
[2023-08-08] MEDS: LIDOCAINE HCL 2% PF 40 MG/2 ML VIAL INJ (12:31)
[2023-08-08] MEDS: LIDOCAINE HCL 2% PF 40 MG/2 ML VIAL 1 ML INJ (12:32)
[2023-08-08] MEDS: INSULIN REGULAR 300 UNITS/3 ML 10 UNIT IV (12:58)
[2023-08-08 13:06] LABS: Glucometer 480 mg/dL (74-106)
[2023-08-08] MEDS: INSULIN REGULAR IN 0.9 % NACL 100 UNIT/100 ML PLAST..BAG IV (13:25)
[2023-08-08 13:56] LABS: Glucometer 432 mg/dL (74-106)
[2023-08-08 14:53] LABS: Glucometer 227 mg/dL (74-106)
[2023-08-08 15:37] LABS: Prothrombin Time 9.3 sec (9.0-11.6)
[2023-08-08 15:51] LABS: Glucometer 147 mg/dL (74-106)
[2023-08-08 15:54] LABS: INR <0.93
[2023-08-08 15:56] LABS: Partial Thromboplastin Time <20.0 sec (22.3-36.2)
[2023-08-08 16:54] LABS: Glucometer 270 mg/dL (74-106)
[2023-08-08] MEDS: LIDOCAINE HCL 1% 100 MG/10 ML MDV INJ (16:54)
[2023-08-08 17:21] LABS: Alanine Aminotransferase 8 U/L (14-59); Albumin Globulin Ratio 0.9; Alkaline Phosphatase 105 U/L (46-116); Anion Gap 28.6; Aspartate Amino Transferase 13 U/L (15-37); Bilirubin Total 0.4 mg/dL (0.2-1.0); Calcium 8.4 mg/dL (8.5-10.1); Carbon Dioxide 9.8 mmol/L (21.0-32.0); Chloride 105 mmol/L (98-107); Estimated GFR (African America >60 (>=60); Estimated GFR (Non-African Ame 53 (>=60); Globulin 3.4 g/dL; Glucose 299 mg/dL (74-106); Potassium 4.4 mmol/L (3.5-5.1); Sodium 139 mmol/L (136-145); Total Protein 6.4 g/dL (6.4-8.2)
[2023-08-08] MEDS: 0.9 % SODIUM CHLORIDE 1,000 ML 200 ML IV (17:21)
[2023-08-08] MEDS: HEPARIN SODIUM (PORCINE) 5,000 UNIT/ML VIAL 4000 UNIT IV (17:34)
[2023-08-08] MEDS: HEPARIN SODIUM,PORCINE/D5W 25,000 UNIT/500 ML IV.SOLN 18 UNIT IV (17:34)
[2023-08-08 17:47] LABS: Glucometer 279 mg/dL (74-106)
--- NOTE | 2023-08-08 18:34 | PC.NURSE ---
[facility] arrives for transport. [place] [facility]
== END 2023-08-08 18:37 | disposition short-term general hospital (02) ==
PROVIDERS: Emergency Provider Emergency Medicine
DX: E10.10 Type 1 diabetes mellitus with ketoacidosis without coma (principal); I82.401 Acute embolism and thrombosis of unspecified deep veins of right lower extremity; F19.10 Other psychoactive substance abuse, uncomplicated; Z91.148 Patient's other noncompliance with medication regimen for other reason; F32.A Depression, unspecified; E10.43 Type 1 diabetes mellitus with diabetic autonomic (poly)neuropathy; Z79.4 Long term (current) use of insulin; Z79.899 Other long term (current) drug therapy
CPT/HCPCS: 36415; 36416; 36556; 36680; 51702; 71045; 80048; 80053; 80076; 80307; 80320; 81001; 82009; 82150; 82800; 83690; 84484; 84703; 85025; 85610; 85730; 93005; 93971; 96361; 96374; 96375; 96376; 99291